=== PATIENT | male | born 1950 | race African-American/Black ===

== ENCOUNTER 2021-02-19 14:44 | Inpatient (IN) | payer OTHER ==
[2021-02-19 16:05] VITALS: BMI 32.5
[2021-02-20] MEDS ORDERED: guaiFENesin 200 MG/10 ML 10 ML UNIT-DOSE CUPS PO PRN (00:22)
[2021-02-20] MEDS ORDERED: NICOTINE POLACRILEX 2 MG GUM BC PRN (00:22)
[2021-02-20] MEDS ORDERED: P-EPHED 60MG/TRIPROLIDI 2.5MG TABLET PO PRN (00:22)
[2021-02-20] MEDS ORDERED: MAGNESIUM HYDROX 2400MG/30ML ORAL SUSPENSION 30 ML CUP PO PRN (00:22)
[2021-02-20] MEDS ORDERED: MAG HYDROX/AL HYDROX/SIMETH 30 ML UNIT-DOSE CUP PO PRN (00:22)
[2021-02-20] MEDS ORDERED: LOPERAMIDE HCL 2 MG CAPSULE PO PRN (00:22)
[2021-02-20] MEDS ORDERED: MAGNESIUM CITRATE 300 ML BOTTLE PO PRN (00:22)
[2021-02-20] MEDS ORDERED: TUBERCULIN PPD 5 TU/0.1ML VIAL ID ONE (02:33)
[2021-02-20 10:59] LABS: ALBUMIN 3.3 g/dl (3.4-5.0)
[2021-02-20 11:04] LABS: BILIRUBIN,TOTAL 0.2 mg/dL (0.2-1); BLOOD UREA NITROGEN 22.4 mg/dL (7-18); CALCIUM 9.3 mg/dL (8.5-10.1); CREATININE 2.2 mg/dL (0.55-1.3); TOT PROT 6.6 g/dl (6.4-8.2)
[2021-02-20 11:09] LABS: HEMATOCRIT 37.7 % (35.4-49); HEMOGLOBIN 12.3 GM/dL (11.7-16.9); MCH 27.1 pg (25.7-33.7); MCHC 32.6 g/dl (32.0-35.9); MEAN CELL VOLUME 83.3 fl (80-96); MEAN PLT VOLUME 10.7 fl (7.5-11.1); PLATELET COUNT 301 10^3/uL (134-434); RBC 4.52 M/mm3 (4.00-5.60); RDW 14.6 % (11.9-15.9); WHITE BLOOD COUNT 16.1 K/mm3 (4.0-10.0)
[2021-02-20] MEDS: NICOTINE 7 MG/24 HOURS TOPICAL PATCH TD SCH (11:27)
[2021-02-20] MEDS: PRENATAL VITAMINS W/ FOLIC ACID TABLET (FP) PO SCH (11:27)
[2021-02-20] MEDS ORDERED: POTASSIUM CHLORIDE TABS 20 MEQ TABLET.ER (FP) PO ONE (15:51)
[2021-02-20 21:14] LABS: EPI CELLS 6 /uL (0-25.1); HYALINE CASTS 0 /uL (0-3.1); URINE APPEARANCE CLEAR; URINE BACTERIA 8 /uL (0-1359); URINE BILIRUBIN NEGATIVE (NEGATIVE); URINE COLOR YELLOW; URINE GLUCOSE (UA) TRACE (NEGATIVE); URINE KETONE NEGATIVE (NEGATIVE); URINE LEUK ESTERASE NEGATIVE (NEGATIVE); URINE NITRITE NEGATIVE (NEGATIVE); URINE PROTEIN 3+ (NEGATIVE); URINE RBC 3 /uL (0-23.9); URINE UROBILINOGEN 0.2 mg/dL (0.2-1.0); URINE WBC 7 /uL (0-25.8)
[2021-02-20] MEDS: MELATONIN 5 MG TABLETS PO SCH (21:42)
[2021-02-20] MEDS: THIAMINE HCL 100 MG TABLET (FP) PO SCH (21:42)
[2021-02-20] MEDS: IBUPROFEN 400 MG TABLET (FP) PO PRN (21:43)
[2021-02-21] MEDS: amLODIPine BESYLATE 5 MG TABLET (FP) PO SCH ×2 (07:26→10:38)
[2021-02-21 09:55] LABS: BLOOD UREA NITROGEN 17.7 mg/dL (7-18); CALCIUM 9.1 mg/dL (8.5-10.1)
[2021-02-21] MEDS: PRENATAL VITAMINS W/ FOLIC ACID TABLET (FP) PO SCH (10:04)
[2021-02-21] MEDS: NICOTINE 7 MG/24 HOURS TOPICAL PATCH TD SCH (10:05)
[2021-02-21] MEDS: POTASSIUM CHLORIDE TABS 20 MEQ TABLET.ER (FP) PO SCH (10:05)
[2021-02-21] MEDS: IBUPROFEN 400 MG TABLET (FP) PO PRN ×2 (10:06→17:00)
[2021-02-21] MEDS: MELATONIN 5 MG TABLETS PO SCH (21:02)
[2021-02-21] MEDS: THIAMINE HCL 100 MG TABLET (FP) PO SCH (21:02)
[2021-02-21] MEDS: ACETAMINOPHEN 325 MG TABLET (FP) PO PRN (21:03)
[2021-02-22] MEDS: ACETAMINOPHEN 325 MG TABLET (FP) PO PRN ×4 (02:01→18:20)
[2021-02-22] MEDS: PRENATAL VITAMINS W/ FOLIC ACID TABLET (FP) PO SCH (09:50)
[2021-02-22] MEDS: amLODIPine BESYLATE 5 MG TABLET (FP) PO SCH (09:50)
[2021-02-22] MEDS: POTASSIUM CHLORIDE TABS 20 MEQ TABLET.ER (FP) PO SCH (09:50)
[2021-02-22] MEDS: NICOTINE 7 MG/24 HOURS TOPICAL PATCH TD SCH (09:53)
[2021-02-22 10:01] LABS: BASO % 0.8 % (0-2.0); HEMATOCRIT 39.2 % (35.4-49); HEMOGLOBIN 12.8 GM/dL (11.7-16.9); LYMPH % 24.9 % (8-40); MCH 27.4 pg (25.7-33.7); MCHC 32.8 g/dl (32.0-35.9); MEAN CELL VOLUME 83.6 fl (80-96); MONO % 8.3 % (3.8-10.2); PLATELET COUNT 311 10^3/uL (134-434); RBC 4.69 M/mm3 (4.00-5.60); RDW 14.5 % (11.9-15.9); WHITE BLOOD COUNT 14.3 K/mm3 (4.0-10.0)
[2021-02-22 10:06] LABS: BLOOD UREA NITROGEN 21.8 mg/dL (7-18)
[2021-02-22 10:09] LABS: CREATININE 2.2 mg/dL (0.55-1.3)
[2021-02-22] MEDS ORDERED: COVID-19 VAC,AD26(JANSSEN)/PF 0.5 ML IM ONE (12:00)
[2021-02-22] MEDS: LIDOCAINE 5% TOPICAL PATCH TP SCH (13:04)
[2021-02-22] MEDS: MELATONIN 5 MG TABLETS PO SCH (21:12)
[2021-02-22] MEDS: LIDOCAINE PATCH REMOVAL MC SCH (21:12)
[2021-02-22] MEDS: THIAMINE HCL 100 MG TABLET (FP) PO SCH (21:12)
[2021-02-23] MEDS: hydrOXYzine PAMOATE 25 MG CAPSULE (FP) PO PRN (04:29)
[2021-02-23] MEDS: ACETAMINOPHEN 325 MG TABLET (FP) PO PRN ×2 (04:29→13:42)
[2021-02-23] MEDS: PRENATAL VITAMINS W/ FOLIC ACID TABLET (FP) PO SCH (09:51)
[2021-02-23] MEDS: NICOTINE 7 MG/24 HOURS TOPICAL PATCH TD SCH (09:52)
[2021-02-23] MEDS: LIDOCAINE 5% TOPICAL PATCH TP SCH (09:52)
[2021-02-23] MEDS: amLODIPine BESYLATE 10 MG TABLET (FP) PO SCH (09:52)
[2021-02-23] MEDS: LISINOPRIL 10 MG TABLET PO SCH (10:33)
[2021-02-23] MEDS: GABAPENTIN 100 MG CAPSULE PO SCH ×2 (13:41→21:16)
[2021-02-23] MEDS: MELATONIN 5 MG TABLETS PO SCH (21:16)
[2021-02-23] MEDS: THIAMINE HCL 100 MG TABLET (FP) PO SCH (21:16)
[2021-02-23] MEDS: LIDOCAINE PATCH REMOVAL MC SCH (21:17)
[2021-02-24] MEDS: GABAPENTIN 100 MG CAPSULE PO SCH ×3 (06:37→21:44)
[2021-02-24] MEDS: ACETAMINOPHEN 325 MG TABLET (FP) PO PRN ×3 (06:37→21:45)
[2021-02-24] MEDS ORDERED: cloNIDine HCL 0.1 MG TABLET PO ONE (06:45)
[2021-02-24] MEDS: NICOTINE 7 MG/24 HOURS TOPICAL PATCH TD SCH (11:06)
[2021-02-24] MEDS: LISINOPRIL 10 MG TABLET PO SCH (11:06)
[2021-02-24] MEDS: amLODIPine BESYLATE 10 MG TABLET (FP) PO SCH (11:06)
[2021-02-24] MEDS: PRENATAL VITAMINS W/ FOLIC ACID TABLET (FP) PO SCH (11:06)
[2021-02-24] MEDS: hydrOXYzine PAMOATE 25 MG CAPSULE (FP) PO PRN (11:07)
[2021-02-24] MEDS: LIDOCAINE 5% TOPICAL PATCH TP SCH (11:08)
[2021-02-24] MEDS: THIAMINE HCL 100 MG TABLET (FP) PO SCH (21:43)
[2021-02-24] MEDS: MELATONIN 5 MG TABLETS PO SCH (21:43)
[2021-02-24] MEDS: LIDOCAINE PATCH REMOVAL MC SCH (21:45)
[2021-02-25] MEDS: GABAPENTIN 100 MG CAPSULE PO SCH ×3 (06:42→21:11)
[2021-02-25] MEDS: ACETAMINOPHEN 325 MG TABLET (FP) PO PRN ×3 (06:42→21:13)
[2021-02-25] MEDS: PRENATAL VITAMINS W/ FOLIC ACID TABLET (FP) PO SCH (09:42)
[2021-02-25] MEDS: hydrOXYzine PAMOATE 25 MG CAPSULE (FP) PO PRN (09:42)
[2021-02-25] MEDS: amLODIPine BESYLATE 10 MG TABLET (FP) PO SCH (09:42)
[2021-02-25] MEDS: LISINOPRIL 10 MG TABLET PO SCH (09:42)
[2021-02-25] MEDS: LIDOCAINE 5% TOPICAL PATCH TP SCH (09:43)
[2021-02-25] MEDS: NICOTINE 7 MG/24 HOURS TOPICAL PATCH TD SCH (09:43)
[2021-02-25 10:53] LABS: BLOOD UREA NITROGEN 25.5 mg/dL (7-18); CALCIUM 8.7 mg/dL (8.5-10.1)
[2021-02-25 10:54] LABS: HEMATOCRIT 41.6 % (35.4-49); HEMOGLOBIN 13.1 GM/dL (11.7-16.9); LYMPH % 30.8 % (8-40); MCH 26.4 pg (25.7-33.7); MCHC 31.6 g/dl (32.0-35.9); MEAN CELL VOLUME 83.8 fl (80-96); MEAN PLT VOLUME 10.3 fl (7.5-11.1); MONO % 10.9 % (3.8-10.2); NEUT % 55.3 % (42.8-82.8); PLATELET COUNT 325 10^3/uL (134-434); RBC 4.97 M/mm3 (4.00-5.60); RDW 14.4 % (11.9-15.9); WHITE BLOOD COUNT 11.6 K/mm3 (4.0-10.0)
[2021-02-25 10:56] LABS: CREATININE 2.4 mg/dL (0.55-1.3)
[2021-02-25] MEDS ORDERED: METHOCARBAMOL 500 MG TABLET PO SCH (14:00)
[2021-02-25] MEDS: BACLOFEN 10 MG TABLET (FP) PO PRN (15:05)
[2021-02-25] MEDS: MELATONIN 5 MG TABLETS PO SCH (21:11)
[2021-02-25] MEDS: THIAMINE HCL 100 MG TABLET (FP) PO SCH (21:11)
[2021-02-25] MEDS: LIDOCAINE PATCH REMOVAL MC SCH (21:14)
[2021-02-26] MEDS: LISINOPRIL 10 MG TABLET PO SCH (07:06)
[2021-02-26] MEDS: amLODIPine BESYLATE 10 MG TABLET (FP) PO SCH (07:06)
[2021-02-26] MEDS: GABAPENTIN 100 MG CAPSULE PO SCH ×3 (07:06→21:38)
[2021-02-26] MEDS: PRENATAL VITAMINS W/ FOLIC ACID TABLET (FP) PO SCH (10:23)
[2021-02-26] MEDS: NICOTINE 7 MG/24 HOURS TOPICAL PATCH TD SCH (10:24)
[2021-02-26] MEDS: LIDOCAINE 5% TOPICAL PATCH TP SCH (10:24)
[2021-02-26] MEDS: BACLOFEN 10 MG TABLET (FP) PO PRN ×3 (10:26→21:38)
[2021-02-26] MEDS: ACETAMINOPHEN 325 MG TABLET (FP) PO PRN ×2 (10:26→21:40)
[2021-02-26] MEDS ORDERED: INSULIN (NOVOLOG) ASPART 100 UNITS/ML 10ML VIAL ONE (17:40)
[2021-02-26] MEDS ORDERED: INSULIN (NOVOLOG) ASPART 100 UNITS/ML 10ML VIAL SQ ONE (18:43)
[2021-02-26] MEDS: THIAMINE HCL 100 MG TABLET (FP) PO SCH (21:38)
[2021-02-26] MEDS: MELATONIN 5 MG TABLETS PO SCH (21:38)
[2021-02-26] MEDS: LIDOCAINE PATCH REMOVAL MC SCH (21:38)
[2021-02-27] MEDS: amLODIPine BESYLATE 10 MG TABLET (FP) PO SCH (06:54)
[2021-02-27] MEDS: GABAPENTIN 100 MG CAPSULE PO SCH ×3 (06:55→21:20)
[2021-02-27] MEDS: LISINOPRIL 10 MG TABLET PO SCH (06:55)
[2021-02-27] MEDS ORDERED: INSULIN SLIDING SCALE (NOVOLOG) 1 VIAL SQ SCH (07:00)
[2021-02-27] MEDS ORDERED: INSULIN (NOVOLOG) ASPART 100 UNITS/ML 10ML VIAL ONE ×2 (07:13→17:20)
[2021-02-27] MEDS: INSULIN SLIDING SCALE (NOVOLOG) 1 VIAL SQ SCH ×2 (07:14→17:21)
[2021-02-27] MEDS: LIDOCAINE 5% TOPICAL PATCH TP SCH (09:42)
[2021-02-27] MEDS: PRENATAL VITAMINS W/ FOLIC ACID TABLET (FP) PO SCH (09:43)
[2021-02-27] MEDS: BACLOFEN 10 MG TABLET (FP) PO PRN ×2 (09:43→15:46)
[2021-02-27] MEDS: NICOTINE 7 MG/24 HOURS TOPICAL PATCH TD SCH (09:43)
[2021-02-27] MEDS: ACETAMINOPHEN 325 MG TABLET (FP) PO PRN ×2 (09:44→21:21)
[2021-02-27] MEDS: MELATONIN 5 MG TABLETS PO SCH (21:19)
[2021-02-27] MEDS: THIAMINE HCL 100 MG TABLET (FP) PO SCH (21:20)
[2021-02-27] MEDS: LIDOCAINE PATCH REMOVAL MC SCH (21:20)
[2021-02-28] MEDS: GABAPENTIN 100 MG CAPSULE PO SCH ×3 (07:05→21:37)
[2021-02-28] MEDS: amLODIPine BESYLATE 10 MG TABLET (FP) PO SCH (07:06)
[2021-02-28] MEDS: LISINOPRIL 10 MG TABLET PO SCH (07:06)
[2021-02-28] MEDS: INSULIN SLIDING SCALE (NOVOLOG) 1 VIAL SQ SCH ×2 (07:09→17:32)
[2021-02-28] MEDS ORDERED: INSULIN (NOVOLOG) ASPART 100 UNITS/ML 10ML VIAL ONE ×2 (07:12→16:32)
[2021-02-28] MEDS: hydrOXYzine PAMOATE 25 MG CAPSULE (FP) PO PRN (09:39)
[2021-02-28] MEDS: BACLOFEN 10 MG TABLET (FP) PO PRN ×2 (09:39→14:27)
[2021-02-28] MEDS: PRENATAL VITAMINS W/ FOLIC ACID TABLET (FP) PO SCH (09:39)
[2021-02-28] MEDS: ACETAMINOPHEN 325 MG TABLET (FP) PO PRN ×3 (09:40→21:38)
[2021-02-28] MEDS: LIDOCAINE 5% TOPICAL PATCH TP SCH (09:41)
[2021-02-28] MEDS: NICOTINE 7 MG/24 HOURS TOPICAL PATCH TD SCH (10:18)
[2021-02-28] MEDS: THIAMINE HCL 100 MG TABLET (FP) PO SCH (21:38)
[2021-02-28] MEDS: MELATONIN 5 MG TABLETS PO SCH (21:38)
[2021-02-28] MEDS: LIDOCAINE PATCH REMOVAL MC SCH (21:39)
[2021-03-01] MEDS: LISINOPRIL 10 MG TABLET PO SCH (06:45)
[2021-03-01] MEDS: amLODIPine BESYLATE 10 MG TABLET (FP) PO SCH (06:45)
[2021-03-01] MEDS: GABAPENTIN 100 MG CAPSULE PO SCH ×3 (06:45→21:12)
[2021-03-01] MEDS: INSULIN SLIDING SCALE (NOVOLOG) 1 VIAL SQ SCH ×2 (06:48→16:54)
[2021-03-01] MEDS ORDERED: INSULIN (NOVOLOG) ASPART 100 UNITS/ML 10ML VIAL ONE ×2 (06:56→16:53)
[2021-03-01] MEDS: PRENATAL VITAMINS W/ FOLIC ACID TABLET (FP) PO SCH (10:05)
[2021-03-01] MEDS: hydrOXYzine PAMOATE 25 MG CAPSULE (FP) PO PRN (10:05)
[2021-03-01] MEDS: ACETAMINOPHEN 325 MG TABLET (FP) PO PRN (10:06)
[2021-03-01] MEDS: LIDOCAINE 5% TOPICAL PATCH TP SCH (10:07)
[2021-03-01] MEDS: NICOTINE 7 MG/24 HOURS TOPICAL PATCH TD SCH (10:07)
[2021-03-01] MEDS: THIAMINE HCL 100 MG TABLET (FP) PO SCH (21:12)
[2021-03-01] MEDS: MELATONIN 5 MG TABLETS PO SCH (21:12)
[2021-03-01] MEDS: LIDOCAINE PATCH REMOVAL MC SCH (21:13)
[2021-03-02] MEDS: BACLOFEN 10 MG TABLET (FP) PO PRN ×3 (07:18→13:34)
[2021-03-02] MEDS: GABAPENTIN 100 MG CAPSULE PO SCH ×3 (07:18→21:28)
[2021-03-02] MEDS: amLODIPine BESYLATE 10 MG TABLET (FP) PO SCH (07:18)
[2021-03-02] MEDS: LISINOPRIL 10 MG TABLET PO SCH (07:18)
[2021-03-02] MEDS ORDERED: INSULIN (NOVOLOG) ASPART 100 UNITS/ML 10ML VIAL ONE ×2 (07:21→16:57)
[2021-03-02] MEDS: INSULIN SLIDING SCALE (NOVOLOG) 1 VIAL SQ SCH ×2 (07:21→16:57)
[2021-03-02] MEDS: PRENATAL VITAMINS W/ FOLIC ACID TABLET (FP) PO SCH (09:43)
[2021-03-02] MEDS: NICOTINE 7 MG/24 HOURS TOPICAL PATCH TD SCH (09:43)
[2021-03-02] MEDS: LIDOCAINE 5% TOPICAL PATCH TP SCH (09:43)
[2021-03-02] MEDS: ACETAMINOPHEN 325 MG TABLET (FP) PO PRN ×2 (13:34→21:28)
[2021-03-02] MEDS: MELATONIN 5 MG TABLETS PO SCH (21:28)
[2021-03-02] MEDS: THIAMINE HCL 100 MG TABLET (FP) PO SCH (21:28)
[2021-03-02] MEDS: LIDOCAINE PATCH REMOVAL MC SCH (21:29)
[2021-03-03] MEDS: GABAPENTIN 100 MG CAPSULE PO SCH ×3 (06:34→21:07)
[2021-03-03] MEDS: amLODIPine BESYLATE 10 MG TABLET (FP) PO SCH (06:34)
[2021-03-03] MEDS: LISINOPRIL 10 MG TABLET PO SCH (06:34)
[2021-03-03] MEDS: INSULIN SLIDING SCALE (NOVOLOG) 1 VIAL SQ SCH ×2 (06:38→16:16)
[2021-03-03] MEDS: PRENATAL VITAMINS W/ FOLIC ACID TABLET (FP) PO SCH (10:34)
[2021-03-03] MEDS: LIDOCAINE 5% TOPICAL PATCH TP SCH (10:34)
[2021-03-03] MEDS: BACLOFEN 10 MG TABLET (FP) PO PRN ×2 (10:35→15:14)
[2021-03-03] MEDS: NICOTINE 7 MG/24 HOURS TOPICAL PATCH TD SCH (10:35)
[2021-03-03] MEDS: ACETAMINOPHEN 325 MG TABLET (FP) PO PRN ×2 (10:36→21:08)
[2021-03-03] MEDS ORDERED: cloNIDine HCL 0.1 MG TABLET PO ONE (14:21)
[2021-03-03] MEDS: HYDROCHLOROTHIAZIDE 12.5 MG CAPSULE (FP) PO SCH (15:14)
[2021-03-03] MEDS ORDERED: INSULIN (NOVOLOG) ASPART 100 UNITS/ML 10ML VIAL ONE (16:15)
[2021-03-03] MEDS: MELATONIN 5 MG TABLETS PO SCH (21:07)
[2021-03-03] MEDS: THIAMINE HCL 100 MG TABLET (FP) PO SCH (21:07)
[2021-03-03] MEDS: METHYL SALICYLATE/MENTHOL OINT 30 GM TUBE TP SCH (21:07)
[2021-03-03] MEDS: LIDOCAINE PATCH REMOVAL MC SCH (21:08)
[2021-03-04] MEDS: LISINOPRIL 10 MG TABLET PO SCH (06:28)
[2021-03-04] MEDS: amLODIPine BESYLATE 10 MG TABLET (FP) PO SCH (06:28)
[2021-03-04] MEDS: GABAPENTIN 100 MG CAPSULE PO SCH ×3 (06:28→21:11)
[2021-03-04] MEDS: INSULIN SLIDING SCALE (NOVOLOG) 1 VIAL SQ SCH ×2 (06:31→17:12)
[2021-03-04] MEDS ORDERED: INSULIN (NOVOLOG) ASPART 100 UNITS/ML 10ML VIAL ONE ×2 (06:31→17:12)
[2021-03-04] MEDS: HYDROCHLOROTHIAZIDE 12.5 MG CAPSULE (FP) PO SCH (09:26)
[2021-03-04] MEDS: PRENATAL VITAMINS W/ FOLIC ACID TABLET (FP) PO SCH (09:26)
[2021-03-04] MEDS: NICOTINE 7 MG/24 HOURS TOPICAL PATCH TD SCH (09:27)
[2021-03-04] MEDS: LIDOCAINE 5% TOPICAL PATCH TP SCH (09:27)
[2021-03-04] MEDS: BACLOFEN 10 MG TABLET (FP) PO PRN (14:26)
[2021-03-04] MEDS: MELATONIN 5 MG TABLETS PO SCH (21:11)
[2021-03-04] MEDS: THIAMINE HCL 100 MG TABLET (FP) PO SCH (21:11)
[2021-03-04] MEDS: METHYL SALICYLATE/MENTHOL OINT 30 GM TUBE TP SCH (21:12)
[2021-03-04] MEDS: LIDOCAINE PATCH REMOVAL MC SCH (21:12)
[2021-03-05] MEDS: amLODIPine BESYLATE 10 MG TABLET (FP) PO SCH (06:23)
[2021-03-05] MEDS: LISINOPRIL 10 MG TABLET PO SCH (06:23)
[2021-03-05] MEDS: GABAPENTIN 100 MG CAPSULE PO SCH ×3 (06:24→21:31)
[2021-03-05] MEDS: INSULIN SLIDING SCALE (NOVOLOG) 1 VIAL SQ SCH ×2 (06:26→16:37)
[2021-03-05] MEDS ORDERED: INSULIN (NOVOLOG) ASPART 100 UNITS/ML 10ML VIAL ONE ×2 (07:03→16:36)
[2021-03-05] MEDS: HYDROCHLOROTHIAZIDE 12.5 MG CAPSULE (FP) PO SCH (09:51)
[2021-03-05] MEDS: LIDOCAINE 5% TOPICAL PATCH TP SCH (09:51)
[2021-03-05] MEDS: PRENATAL VITAMINS W/ FOLIC ACID TABLET (FP) PO SCH (09:51)
[2021-03-05] MEDS: NICOTINE 7 MG/24 HOURS TOPICAL PATCH TD SCH (10:16)
[2021-03-05] MEDS: BACLOFEN 10 MG TABLET (FP) PO PRN (13:40)
[2021-03-05] MEDS: LIDOCAINE PATCH REMOVAL MC SCH (21:31)
[2021-03-05] MEDS: MELATONIN 5 MG TABLETS PO SCH (21:31)
[2021-03-05] MEDS: METHYL SALICYLATE/MENTHOL OINT 30 GM TUBE TP SCH (21:31)
[2021-03-05] MEDS: THIAMINE HCL 100 MG TABLET (FP) PO SCH (21:31)
[2021-03-06] MEDS: amLODIPine BESYLATE 10 MG TABLET (FP) PO SCH (07:18)
[2021-03-06] MEDS: BACLOFEN 10 MG TABLET (FP) PO PRN (07:18)
[2021-03-06] MEDS: GABAPENTIN 100 MG CAPSULE PO SCH ×3 (07:18→21:14)
[2021-03-06] MEDS: LISINOPRIL 10 MG TABLET PO SCH (07:18)
[2021-03-06] MEDS ORDERED: INSULIN (NOVOLOG) ASPART 100 UNITS/ML 10ML VIAL ONE ×2 (07:22→17:00)
[2021-03-06] MEDS: INSULIN SLIDING SCALE (NOVOLOG) 1 VIAL SQ SCH ×2 (07:22→17:00)
[2021-03-06] MEDS: HYDROCHLOROTHIAZIDE 12.5 MG CAPSULE (FP) PO SCH (09:38)
[2021-03-06] MEDS: LIDOCAINE 5% TOPICAL PATCH TP SCH (09:38)
[2021-03-06] MEDS: PRENATAL VITAMINS W/ FOLIC ACID TABLET (FP) PO SCH (09:38)
[2021-03-06] MEDS: hydrOXYzine PAMOATE 25 MG CAPSULE (FP) PO PRN (09:38)
[2021-03-06] MEDS: NICOTINE 7 MG/24 HOURS TOPICAL PATCH TD SCH (09:39)
[2021-03-06] MEDS: METHYL SALICYLATE/MENTHOL OINT 30 GM TUBE TP SCH (21:13)
[2021-03-06] MEDS: LIDOCAINE PATCH REMOVAL MC SCH (21:13)
[2021-03-06] MEDS: THIAMINE HCL 100 MG TABLET (FP) PO SCH (21:14)
[2021-03-06] MEDS: MELATONIN 5 MG TABLETS PO SCH (21:15)
[2021-03-07] MEDS: GABAPENTIN 100 MG CAPSULE PO SCH ×3 (06:28→21:07)
[2021-03-07] MEDS: amLODIPine BESYLATE 10 MG TABLET (FP) PO SCH (06:28)
[2021-03-07] MEDS: LISINOPRIL 10 MG TABLET PO SCH (06:28)
[2021-03-07] MEDS: INSULIN SLIDING SCALE (NOVOLOG) 1 VIAL SQ SCH ×2 (06:31→17:04)
[2021-03-07] MEDS: HYDROCHLOROTHIAZIDE 12.5 MG CAPSULE (FP) PO SCH (09:43)
[2021-03-07] MEDS: PRENATAL VITAMINS W/ FOLIC ACID TABLET (FP) PO SCH (09:43)
[2021-03-07] MEDS: LIDOCAINE 5% TOPICAL PATCH TP SCH (09:44)
[2021-03-07] MEDS: NICOTINE 7 MG/24 HOURS TOPICAL PATCH TD SCH (09:46)
[2021-03-07] MEDS ORDERED: INSULIN (NOVOLOG) ASPART 100 UNITS/ML 10ML VIAL ONE (17:05)
[2021-03-07] MEDS: LIDOCAINE PATCH REMOVAL MC SCH (21:07)
[2021-03-07] MEDS: THIAMINE HCL 100 MG TABLET (FP) PO SCH (21:07)
[2021-03-07] MEDS: MELATONIN 5 MG TABLETS PO SCH (21:07)
[2021-03-07] MEDS: METHYL SALICYLATE/MENTHOL OINT 30 GM TUBE TP SCH (21:08)
[2021-03-08] MEDS: hydrOXYzine PAMOATE 25 MG CAPSULE (FP) PO PRN (02:13)
[2021-03-08] MEDS: GABAPENTIN 100 MG CAPSULE PO SCH ×3 (06:16→21:44)
[2021-03-08] MEDS: LISINOPRIL 10 MG TABLET PO SCH (06:16)
[2021-03-08] MEDS: amLODIPine BESYLATE 10 MG TABLET (FP) PO SCH (06:16)
[2021-03-08] MEDS: INSULIN SLIDING SCALE (NOVOLOG) 1 VIAL SQ SCH ×2 (06:18→17:06)
[2021-03-08] MEDS ORDERED: INSULIN (NOVOLOG) ASPART 100 UNITS/ML 10ML VIAL ONE ×2 (06:45→17:05)
[2021-03-08] MEDS: LIDOCAINE 5% TOPICAL PATCH TP SCH (09:38)
[2021-03-08] MEDS: HYDROCHLOROTHIAZIDE 12.5 MG CAPSULE (FP) PO SCH (09:39)
[2021-03-08] MEDS: NICOTINE 7 MG/24 HOURS TOPICAL PATCH TD SCH (09:39)
[2021-03-08] MEDS: BACLOFEN 10 MG TABLET (FP) PO PRN ×2 (09:39→15:00)
[2021-03-08] MEDS: PRENATAL VITAMINS W/ FOLIC ACID TABLET (FP) PO SCH (09:39)
[2021-03-08] MEDS: METHYL SALICYLATE/MENTHOL OINT 30 GM TUBE TP SCH (21:44)
[2021-03-08] MEDS: MELATONIN 5 MG TABLETS PO SCH (21:44)
[2021-03-08] MEDS: THIAMINE HCL 100 MG TABLET (FP) PO SCH (21:44)
[2021-03-08] MEDS: LIDOCAINE PATCH REMOVAL MC SCH (21:44)
[2021-03-09] MEDS: INSULIN SLIDING SCALE (NOVOLOG) 1 VIAL SQ SCH ×2 (06:29→17:11)
[2021-03-09] MEDS: GABAPENTIN 100 MG CAPSULE PO SCH ×3 (06:29→21:09)
[2021-03-09] MEDS: LISINOPRIL 10 MG TABLET PO SCH (06:29)
[2021-03-09] MEDS: amLODIPine BESYLATE 10 MG TABLET (FP) PO SCH (06:29)
[2021-03-09] MEDS ORDERED: INSULIN (NOVOLOG) ASPART 100 UNITS/ML 10ML VIAL ONE ×2 (06:33→17:16)
[2021-03-09] MEDS: BACLOFEN 10 MG TABLET (FP) PO PRN (10:00)
[2021-03-09] MEDS: HYDROCHLOROTHIAZIDE 12.5 MG CAPSULE (FP) PO SCH (10:00)
[2021-03-09] MEDS: NICOTINE 7 MG/24 HOURS TOPICAL PATCH TD SCH (10:00)
[2021-03-09] MEDS: PRENATAL VITAMINS W/ FOLIC ACID TABLET (FP) PO SCH (10:00)
[2021-03-09] MEDS: LIDOCAINE 5% TOPICAL PATCH TP SCH (10:01)
[2021-03-09] MEDS: MELATONIN 5 MG TABLETS PO SCH (21:09)
[2021-03-09] MEDS: THIAMINE HCL 100 MG TABLET (FP) PO SCH (21:09)
[2021-03-09] MEDS: ACETAMINOPHEN 325 MG TABLET (FP) PO PRN (21:10)
[2021-03-09] MEDS: LIDOCAINE PATCH REMOVAL MC SCH (21:11)
[2021-03-09] MEDS: METHYL SALICYLATE/MENTHOL OINT 30 GM TUBE TP SCH (21:11)
[2021-03-10] MEDS: LISINOPRIL 10 MG TABLET PO SCH (06:50)
[2021-03-10] MEDS: GABAPENTIN 100 MG CAPSULE PO SCH ×3 (06:50→21:37)
[2021-03-10] MEDS: amLODIPine BESYLATE 10 MG TABLET (FP) PO SCH (06:50)
[2021-03-10] MEDS: INSULIN SLIDING SCALE (NOVOLOG) 1 VIAL SQ SCH ×2 (06:52→16:58)
[2021-03-10] MEDS ORDERED: INSULIN (NOVOLOG) ASPART 100 UNITS/ML 10ML VIAL ONE ×2 (07:16→16:59)
[2021-03-10] MEDS: HYDROCHLOROTHIAZIDE 12.5 MG CAPSULE (FP) PO SCH (10:52)
[2021-03-10] MEDS: LIDOCAINE 5% TOPICAL PATCH TP SCH (10:52)
[2021-03-10] MEDS: PRENATAL VITAMINS W/ FOLIC ACID TABLET (FP) PO SCH (10:53)
[2021-03-10] MEDS: BACLOFEN 10 MG TABLET (FP) PO PRN ×2 (10:53→14:19)
[2021-03-10] MEDS: NICOTINE 7 MG/24 HOURS TOPICAL PATCH TD SCH (10:54)
[2021-03-10] MEDS: THIAMINE HCL 100 MG TABLET (FP) PO SCH (21:37)
[2021-03-10] MEDS: METHYL SALICYLATE/MENTHOL OINT 30 GM TUBE TP SCH (21:38)
[2021-03-10] MEDS: LIDOCAINE PATCH REMOVAL MC SCH (21:38)
[2021-03-10] MEDS: MELATONIN 5 MG TABLETS PO SCH (21:38)
[2021-03-11] MEDS: ACETAMINOPHEN 325 MG TABLET (FP) PO PRN (00:02)
[2021-03-11] MEDS: GABAPENTIN 100 MG CAPSULE PO SCH ×3 (06:35→21:08)
[2021-03-11] MEDS: LISINOPRIL 10 MG TABLET PO SCH (06:35)
[2021-03-11] MEDS: amLODIPine BESYLATE 10 MG TABLET (FP) PO SCH (06:35)
[2021-03-11] MEDS: INSULIN SLIDING SCALE (NOVOLOG) 1 VIAL SQ SCH ×2 (06:36→16:51)
[2021-03-11] MEDS ORDERED: INSULIN (NOVOLOG) ASPART 100 UNITS/ML 10ML VIAL ONE ×2 (06:52→16:52)
[2021-03-11] MEDS: PRENATAL VITAMINS W/ FOLIC ACID TABLET (FP) PO SCH (10:33)
[2021-03-11] MEDS: NICOTINE 7 MG/24 HOURS TOPICAL PATCH TD SCH (10:33)
[2021-03-11] MEDS: LIDOCAINE 5% TOPICAL PATCH TP SCH (10:34)
[2021-03-11] MEDS: HYDROCHLOROTHIAZIDE 12.5 MG CAPSULE (FP) PO SCH (10:35)
[2021-03-11] MEDS: MELATONIN 5 MG TABLETS PO SCH (21:08)
[2021-03-11] MEDS: THIAMINE HCL 100 MG TABLET (FP) PO SCH (21:08)
[2021-03-11] MEDS: LIDOCAINE PATCH REMOVAL MC SCH (21:09)
[2021-03-11] MEDS: METHYL SALICYLATE/MENTHOL OINT 30 GM TUBE TP SCH (21:09)
[2021-03-12] MEDS: LISINOPRIL 10 MG TABLET PO SCH (06:38)
[2021-03-12] MEDS: GABAPENTIN 100 MG CAPSULE PO SCH ×3 (06:38→21:48)
[2021-03-12] MEDS: amLODIPine BESYLATE 10 MG TABLET (FP) PO SCH (06:38)
[2021-03-12] MEDS: INSULIN SLIDING SCALE (NOVOLOG) 1 VIAL SQ SCH ×2 (06:38→17:08)
[2021-03-12] MEDS ORDERED: INSULIN (NOVOLOG) ASPART 100 UNITS/ML 10ML VIAL ONE ×2 (06:50→16:58)
[2021-03-12] MEDS: PRENATAL VITAMINS W/ FOLIC ACID TABLET (FP) PO SCH (09:47)
[2021-03-12] MEDS: LIDOCAINE 5% TOPICAL PATCH TP SCH (09:48)
[2021-03-12] MEDS: HYDROCHLOROTHIAZIDE 12.5 MG CAPSULE (FP) PO SCH (09:48)
[2021-03-12] MEDS: NICOTINE 7 MG/24 HOURS TOPICAL PATCH TD SCH (09:48)
[2021-03-12] MEDS: BACLOFEN 10 MG TABLET (FP) PO PRN ×2 (09:48→15:14)
[2021-03-12] MEDS: THIAMINE HCL 100 MG TABLET (FP) PO SCH (21:48)
[2021-03-12] MEDS: MELATONIN 5 MG TABLETS PO SCH (21:48)
[2021-03-12] MEDS: METHYL SALICYLATE/MENTHOL OINT 30 GM TUBE TP SCH (21:49)
[2021-03-12] MEDS: LIDOCAINE PATCH REMOVAL MC SCH (21:51)
[2021-03-12] MEDS: ACETAMINOPHEN 325 MG TABLET (FP) PO PRN (23:40)
[2021-03-13] MEDS: GABAPENTIN 100 MG CAPSULE PO SCH ×3 (06:33→21:42)
[2021-03-13] MEDS: amLODIPine BESYLATE 10 MG TABLET (FP) PO SCH (06:33)
[2021-03-13] MEDS: LISINOPRIL 10 MG TABLET PO SCH (06:33)
[2021-03-13] MEDS: INSULIN SLIDING SCALE (NOVOLOG) 1 VIAL SQ SCH ×2 (06:38→17:16)
[2021-03-13] MEDS ORDERED: INSULIN (NOVOLOG) ASPART 100 UNITS/ML 10ML VIAL ONE ×2 (06:39→17:13)
[2021-03-13] MEDS: LIDOCAINE 5% TOPICAL PATCH TP SCH (13:07)
[2021-03-13] MEDS: BACLOFEN 10 MG TABLET (FP) PO PRN ×2 (13:07→14:20)
[2021-03-13] MEDS: NICOTINE 7 MG/24 HOURS TOPICAL PATCH TD SCH (13:07)
[2021-03-13] MEDS: PRENATAL VITAMINS W/ FOLIC ACID TABLET (FP) PO SCH (13:07)
[2021-03-13] MEDS: HYDROCHLOROTHIAZIDE 12.5 MG CAPSULE (FP) PO SCH (13:08)
[2021-03-13] MEDS: THIAMINE HCL 100 MG TABLET (FP) PO SCH (21:41)
[2021-03-13] MEDS: MELATONIN 5 MG TABLETS PO SCH (21:42)
[2021-03-13] MEDS: METHYL SALICYLATE/MENTHOL OINT 30 GM TUBE TP SCH (21:42)
[2021-03-13] MEDS: ACETAMINOPHEN 325 MG TABLET (FP) PO PRN (21:43)
[2021-03-13] MEDS: LIDOCAINE PATCH REMOVAL MC SCH (21:44)
[2021-03-14] MEDS ORDERED: INSULIN (NOVOLOG) ASPART 100 UNITS/ML 10ML VIAL ONE ×2 (03:11→16:49)
[2021-03-14] MEDS: LISINOPRIL 10 MG TABLET PO SCH (05:57)
[2021-03-14] MEDS: GABAPENTIN 100 MG CAPSULE PO SCH ×3 (05:57→21:26)
[2021-03-14] MEDS: amLODIPine BESYLATE 10 MG TABLET (FP) PO SCH (05:57)
[2021-03-14] MEDS: INSULIN SLIDING SCALE (NOVOLOG) 1 VIAL SQ SCH ×2 (06:00→16:50)
[2021-03-14] MEDS: NICOTINE 7 MG/24 HOURS TOPICAL PATCH TD SCH (09:26)
[2021-03-14] MEDS: PRENATAL VITAMINS W/ FOLIC ACID TABLET (FP) PO SCH (09:26)
[2021-03-14] MEDS: LIDOCAINE 5% TOPICAL PATCH TP SCH (09:26)
[2021-03-14] MEDS: HYDROCHLOROTHIAZIDE 12.5 MG CAPSULE (FP) PO SCH (09:26)
[2021-03-14] MEDS: BACLOFEN 10 MG TABLET (FP) PO PRN (14:09)
[2021-03-14] MEDS: METHYL SALICYLATE/MENTHOL OINT 30 GM TUBE TP SCH (21:26)
[2021-03-14] MEDS: MELATONIN 5 MG TABLETS PO SCH (21:26)
[2021-03-14] MEDS: THIAMINE HCL 100 MG TABLET (FP) PO SCH (21:26)
[2021-03-14] MEDS: LIDOCAINE PATCH REMOVAL MC SCH (21:27)
[2021-03-15] MEDS: LISINOPRIL 10 MG TABLET PO SCH (06:40)
[2021-03-15] MEDS: amLODIPine BESYLATE 10 MG TABLET (FP) PO SCH (06:40)
[2021-03-15] MEDS: GABAPENTIN 100 MG CAPSULE PO SCH ×3 (06:40→21:20)
[2021-03-15] MEDS: INSULIN SLIDING SCALE (NOVOLOG) 1 VIAL SQ SCH ×2 (06:42→16:52)
[2021-03-15] MEDS ORDERED: INSULIN (NOVOLOG) ASPART 100 UNITS/ML 10ML VIAL ONE ×2 (06:56→16:55)
[2021-03-15] MEDS: PRENATAL VITAMINS W/ FOLIC ACID TABLET (FP) PO SCH (10:00)
[2021-03-15] MEDS: HYDROCHLOROTHIAZIDE 12.5 MG CAPSULE (FP) PO SCH (10:01)
[2021-03-15] MEDS: NICOTINE 7 MG/24 HOURS TOPICAL PATCH TD SCH (10:01)
[2021-03-15] MEDS: LIDOCAINE 5% TOPICAL PATCH TP SCH (10:02)
[2021-03-15] MEDS: ACETAMINOPHEN 325 MG TABLET (FP) PO PRN (11:21)
[2021-03-15] MEDS: THIAMINE HCL 100 MG TABLET (FP) PO SCH (21:20)
[2021-03-15] MEDS: LIDOCAINE PATCH REMOVAL MC SCH (21:20)
[2021-03-15] MEDS: MELATONIN 5 MG TABLETS PO SCH (21:20)
[2021-03-15] MEDS: METHYL SALICYLATE/MENTHOL OINT 30 GM TUBE TP SCH (21:21)
[2021-03-16] MEDS: LISINOPRIL 10 MG TABLET PO SCH ×2 (06:21→21:37)
[2021-03-16] MEDS: GABAPENTIN 100 MG CAPSULE PO SCH ×3 (06:21→21:37)
[2021-03-16] MEDS: amLODIPine BESYLATE 10 MG TABLET (FP) PO SCH (06:21)
[2021-03-16] MEDS: INSULIN SLIDING SCALE (NOVOLOG) 1 VIAL SQ SCH ×2 (06:23→17:18)
[2021-03-16] MEDS ORDERED: INSULIN (NOVOLOG) ASPART 100 UNITS/ML 10ML VIAL ONE ×2 (06:54→17:19)
[2021-03-16] MEDS: LIDOCAINE 5% TOPICAL PATCH TP SCH (10:16)
[2021-03-16] MEDS: PRENATAL VITAMINS W/ FOLIC ACID TABLET (FP) PO SCH (10:16)
[2021-03-16] MEDS: NICOTINE 7 MG/24 HOURS TOPICAL PATCH TD SCH (10:16)
[2021-03-16] MEDS: BACLOFEN 10 MG TABLET (FP) PO PRN ×2 (10:16→14:49)
[2021-03-16] MEDS: HYDROCHLOROTHIAZIDE 12.5 MG CAPSULE (FP) PO SCH (10:18)
[2021-03-16] MEDS ORDERED: LISINOPRIL 10 MG TABLET PO ONE (10:54)
[2021-03-16] MEDS: MELATONIN 5 MG TABLETS PO SCH (21:37)
[2021-03-16] MEDS: METHYL SALICYLATE/MENTHOL OINT 30 GM TUBE TP SCH (21:38)
[2021-03-16] MEDS: THIAMINE HCL 100 MG TABLET (FP) PO SCH (21:38)
[2021-03-16] MEDS: LIDOCAINE PATCH REMOVAL MC SCH (21:38)
[2021-03-17] MEDS: GABAPENTIN 100 MG CAPSULE PO SCH ×3 (06:15→21:05)
[2021-03-17] MEDS: amLODIPine BESYLATE 10 MG TABLET (FP) PO SCH (06:15)
[2021-03-17] MEDS: sitaGLIPtin PHOSPHATE 50 MG TABLET PO SCH (06:16)
[2021-03-17] MEDS: INSULIN SLIDING SCALE (NOVOLOG) 1 VIAL SQ SCH ×2 (06:17→16:48)
[2021-03-17] MEDS ORDERED: INSULIN (NOVOLOG) ASPART 100 UNITS/ML 10ML VIAL ONE ×2 (07:11→16:47)
[2021-03-17] MEDS: ACETAMINOPHEN 325 MG TABLET (FP) PO PRN (09:03)
[2021-03-17] MEDS: BACLOFEN 10 MG TABLET (FP) PO PRN ×2 (09:50→13:32)
[2021-03-17] MEDS: HYDROCHLOROTHIAZIDE 25 MG TABLET (FP) PO SCH (09:50)
[2021-03-17] MEDS: LISINOPRIL 10 MG TABLET PO SCH ×2 (09:50→21:05)
[2021-03-17] MEDS: PRENATAL VITAMINS W/ FOLIC ACID TABLET (FP) PO SCH (09:50)
[2021-03-17] MEDS: NICOTINE 7 MG/24 HOURS TOPICAL PATCH TD SCH (09:51)
[2021-03-17] MEDS: LIDOCAINE 5% TOPICAL PATCH TP SCH (09:51)
[2021-03-17] MEDS: MELATONIN 5 MG TABLETS PO SCH (21:06)
[2021-03-17] MEDS: THIAMINE HCL 100 MG TABLET (FP) PO SCH (21:06)
[2021-03-17] MEDS: METHYL SALICYLATE/MENTHOL OINT 30 GM TUBE TP SCH (21:07)
[2021-03-17] MEDS: LIDOCAINE PATCH REMOVAL MC SCH (21:07)
[2021-03-18] MEDS: amLODIPine BESYLATE 10 MG TABLET (FP) PO SCH (06:43)
[2021-03-18] MEDS: GABAPENTIN 100 MG CAPSULE PO SCH ×3 (06:43→21:40)
[2021-03-18] MEDS: sitaGLIPtin PHOSPHATE 50 MG TABLET PO SCH (06:44)
[2021-03-18] MEDS: INSULIN SLIDING SCALE (NOVOLOG) 1 VIAL SQ SCH ×2 (06:45→17:02)
[2021-03-18] MEDS ORDERED: INSULIN (NOVOLOG) ASPART 100 UNITS/ML 10ML VIAL ONE ×2 (06:49→17:00)
[2021-03-18] MEDS: PRENATAL VITAMINS W/ FOLIC ACID TABLET (FP) PO SCH (09:49)
[2021-03-18] MEDS: ACETAMINOPHEN 325 MG TABLET (FP) PO PRN (09:49)
[2021-03-18] MEDS: BACLOFEN 10 MG TABLET (FP) PO PRN ×2 (09:50→13:59)
[2021-03-18] MEDS: NICOTINE 7 MG/24 HOURS TOPICAL PATCH TD SCH (09:50)
[2021-03-18] MEDS: LIDOCAINE 5% TOPICAL PATCH TP SCH (09:50)
[2021-03-18] MEDS: LISINOPRIL 10 MG TABLET PO SCH ×2 (09:50→21:40)
[2021-03-18] MEDS: HYDROCHLOROTHIAZIDE 25 MG TABLET (FP) PO SCH (09:50)
[2021-03-18] MEDS: THIAMINE HCL 100 MG TABLET (FP) PO SCH (21:40)
[2021-03-18] MEDS: MELATONIN 5 MG TABLETS PO SCH (21:40)
[2021-03-18] MEDS: LIDOCAINE PATCH REMOVAL MC SCH (21:41)
[2021-03-18] MEDS: METHYL SALICYLATE/MENTHOL OINT 30 GM TUBE TP SCH (21:41)
[2021-03-19] MEDS ORDERED: INSULIN (NOVOLOG) ASPART 100 UNITS/ML 10ML VIAL ONE (03:01)
[2021-03-19] MEDS: amLODIPine BESYLATE 10 MG TABLET (FP) PO SCH (06:38)
[2021-03-19] MEDS: GABAPENTIN 100 MG CAPSULE PO SCH (06:38)
[2021-03-19] MEDS: sitaGLIPtin PHOSPHATE 50 MG TABLET PO SCH (06:38)
[2021-03-19] MEDS: INSULIN SLIDING SCALE (NOVOLOG) 1 VIAL SQ SCH (06:40)
[2021-03-19 07:01] VITALS: BP 181/86; PULSE 89; TEMP 97.7
[2021-03-19] MEDS: HYDROCHLOROTHIAZIDE 25 MG TABLET (FP) PO SCH (09:52)
[2021-03-19] MEDS: LISINOPRIL 10 MG TABLET PO SCH (09:52)
[2021-03-19] MEDS: PRENATAL VITAMINS W/ FOLIC ACID TABLET (FP) PO SCH (09:52)
[2021-03-19] MEDS: LIDOCAINE 5% TOPICAL PATCH TP SCH (09:53)
[2021-03-19] MEDS: NICOTINE 7 MG/24 HOURS TOPICAL PATCH TD SCH (09:53)
== END 2021-03-19 10:07 | disposition home or self-care (01) | DRG 895 ==
LOC: YASAS 14:44 → Y3W 02-20 01:53
PROVIDERS: ADMIT Allergy & Immunology; ATTEND Allergy & Immunology
PROC: HZ42ZZZ Group Counseling for Substance Abuse Treatment, Cognitive-Behavioral (ICD-10-PCS; principal; 2021-02-20)
DX: F10.20 Alcohol dependence, uncomplicated (principal); F14.20 Cocaine dependence, uncomplicated; F11.10 Opioid abuse, uncomplicated; D72.829 Elevated white blood cell count, unspecified; I25.10 Atherosclerotic heart disease of native coronary artery without angina pectoris; I13.10 Hypertensive heart and chronic kidney disease without heart failure, with stage 1 through stage 4 chronic kidney disease, or unspecified chronic kidney disease; N18.9 Chronic kidney disease, unspecified; Z95.5 Presence of coronary angioplasty implant and graft; E87.6 Hypokalemia; E78.5 Hyperlipidemia, unspecified; E11.9 Type 2 diabetes mellitus without complications; Z79.4 Long term (current) use of insulin; L30.9 Dermatitis, unspecified; M17.11 Unilateral primary osteoarthritis, right knee; M19.071 Primary osteoarthritis, right ankle and foot; M25.571 Pain in right ankle and joints of right foot; Z87.81 Personal history of (healed) traumatic fracture; Z90.79 Acquired absence of other genital organ(s); S82.891D Other fracture of right lower leg, subsequent encounter for closed fracture with routine healing; W19.XXXD Unspecified fall, subsequent encounter
CPT/HCPCS: 0031A; 36415; 73610-TC-RT-FY; 80048; 80053; 81003; 82962; 85025; 85027; 86593; 86780; 91303; C9803; J0475; J0735; U0003; U0005

== ENCOUNTER 2021-06-30 12:20 | Inpatient (IN) | payer OTHER ==
[2021-06-30] MEDS ORDERED: MAGNESIUM CITRATE 300 ML BOTTLE PO PRN (14:00)
[2021-06-30] MEDS ORDERED: P-EPHED 60MG/TRIPROLIDI 2.5MG TABLET PO PRN (14:00)
[2021-06-30] MEDS ORDERED: LOPERAMIDE HCL 2 MG CAPSULE PO PRN (14:00)
[2021-06-30] MEDS ORDERED: MAG HYDROX/AL HYDROX/SIMETH 30 ML UNIT-DOSE CUP PO PRN (14:00)
[2021-06-30] MEDS ORDERED: guaiFENesin 200 MG/10 ML 10 ML UNIT-DOSE CUPS PO PRN (14:00)
[2021-06-30] MEDS ORDERED: NICOTINE 10 MG CARTRIDGE (INHALER) IH PRN (14:00)
[2021-06-30] MEDS ORDERED: MAGNESIUM HYDROX 2400MG/30ML ORAL SUSPENSION 30 ML CUP PO PRN (14:00)
[2021-06-30 14:23] VITALS: BMI 32.9
[2021-06-30 17:57] LABS: HEMATOCRIT 43.3 % (35.4-49); MCH 26.6 pg (25.7-33.7); MCHC 32.3 g/dl (32.0-35.9); MEAN CELL VOLUME 82.4 fl (80-96); MEAN PLT VOLUME 11.4 fl (7.5-11.1); PLATELET COUNT 327 10^3/uL (134-434); RBC 5.25 M/mm3 (4.00-5.60); RDW 14.1 % (11.9-15.9); WHITE BLOOD COUNT 15.3 K/mm3 (4.0-10.0)
[2021-06-30 18:03] LABS: BLOOD UREA NITROGEN 42.4 mg/dL (7-18); CALCIUM 9.3 mg/dL (8.5-10.1)
[2021-06-30 18:04] LABS: ALBUMIN 3.4 g/dl (3.4-5.0)
[2021-06-30 18:06] LABS: CREATININE 2.9 mg/dL (0.55-1.3)
[2021-06-30 18:08] LABS: BILIRUBIN,TOTAL 0.4 mg/dL (0.2-1); TOT PROT 7.7 g/dl (6.4-8.2)
[2021-06-30 18:56] LABS: SYPHILIS W/ RPR CONF REACTIVE (NONREACTIVE)
[2021-06-30] MEDS: THIAMINE HCL 100 MG TABLET (FP) PO SCH (21:52)
[2021-06-30] MEDS: hydrOXYzine PAMOATE 25 MG CAPSULE (FP) PO PRN (21:53)
[2021-06-30] MEDS: ATORVASTATIN CA 40 MG TABLET (FP) PO SCH (21:53)
[2021-06-30] MEDS: IBUPROFEN 400 MG TABLET (FP) PO PRN (21:53)
[2021-06-30] MEDS: MELATONIN 5 MG TABLETS PO SCH (21:57)
[2021-07-01] MEDS: sitaGLIPtin PHOSPHATE 50 MG TABLET PO SCH (08:00)
[2021-07-01] MEDS: TAMSULOSIN HCL 0.4 MG CAP PO SCH (11:44)
[2021-07-01] MEDS: NICOTINE 7 MG/24 HOURS TOPICAL PATCH TD SCH (11:45)
[2021-07-01] MEDS: PRENATAL VITAMINS W/ FOLIC ACID TABLET (FP) PO SCH (11:45)
[2021-07-01] MEDS ORDERED: PT OWN MED DRAWER 7, Y5N ONE (17:17)
[2021-07-01] MEDS ORDERED: INSULIN (NOVOLOG) ASPART 100 UNITS/ML 10ML VIAL SQ ONE (17:57)
[2021-07-01] MEDS: THIAMINE HCL 100 MG TABLET (FP) PO SCH (21:31)
[2021-07-01] MEDS: ATORVASTATIN CA 40 MG TABLET (FP) PO SCH (21:32)
[2021-07-01] MEDS: MELATONIN 5 MG TABLETS PO SCH (21:32)
[2021-07-01] MEDS: INSULIN SLIDING SCALE (NOVOLOG) 1 VIAL SQ SCH (21:33)
[2021-07-01] MEDS ORDERED: INSULIN (NOVOLOG) ASPART 100 UNITS/ML 10ML VIAL ONE (21:35)
[2021-07-01] MEDS ORDERED: INSULIN SLIDING SCALE (NOVOLOG) 1 VIAL SQ SCH (22:00)
[2021-07-02] MEDS: hydrOXYzine PAMOATE 25 MG CAPSULE (FP) PO PRN (02:31)
[2021-07-02] MEDS: sitaGLIPtin PHOSPHATE 50 MG TABLET PO SCH (06:43)
[2021-07-02] MEDS ORDERED: INSULIN (NOVOLOG) ASPART 100 UNITS/ML 10ML VIAL ONE ×3 (08:11→21:01)
[2021-07-02] MEDS: INSULIN SLIDING SCALE (NOVOLOG) 1 VIAL SQ SCH ×4 (08:12→21:04)
[2021-07-02] MEDS ORDERED: PT OWN MED DRAWER 7, Y5N ONE (09:10)
[2021-07-02] MEDS: TAMSULOSIN HCL 0.4 MG CAP PO SCH (09:29)
[2021-07-02] MEDS: PRENATAL VITAMINS W/ FOLIC ACID TABLET (FP) PO SCH (09:29)
[2021-07-02] MEDS: NICOTINE 7 MG/24 HOURS TOPICAL PATCH TD SCH (09:29)
[2021-07-02] MEDS ORDERED: FLU VACC QS2021-22(6MOS UP)/PF 60 MCG/0.5 ML SYRINGE IM ONE (12:00)
[2021-07-02] MEDS ORDERED: amLODIPine BESYLATE 10 MG TABLET (FP) PO ONE (15:25)
[2021-07-02] MEDS: THIAMINE HCL 100 MG TABLET (FP) PO SCH (21:03)
[2021-07-02] MEDS: LISINOPRIL 10 MG TABLET PO SCH (21:03)
[2021-07-02] MEDS: ATORVASTATIN CA 40 MG TABLET (FP) PO SCH (21:03)
[2021-07-02] MEDS: MELATONIN 5 MG TABLETS PO SCH (21:04)
[2021-07-03] MEDS: hydrOXYzine PAMOATE 25 MG CAPSULE (FP) PO PRN (01:41)
[2021-07-03] MEDS: sitaGLIPtin PHOSPHATE 50 MG TABLET PO SCH (07:24)
[2021-07-03] MEDS ORDERED: INSULIN (NOVOLOG) ASPART 100 UNITS/ML 10ML VIAL ONE ×2 (07:27→12:17)
[2021-07-03] MEDS: INSULIN SLIDING SCALE (NOVOLOG) 1 VIAL SQ SCH ×4 (08:41→21:25)
[2021-07-03] MEDS: TAMSULOSIN HCL 0.4 MG CAP PO SCH (08:55)
[2021-07-03] MEDS: PRENATAL VITAMINS W/ FOLIC ACID TABLET (FP) PO SCH (10:40)
[2021-07-03] MEDS: NICOTINE 7 MG/24 HOURS TOPICAL PATCH TD SCH (10:40)
[2021-07-03] MEDS: LISINOPRIL 10 MG TABLET PO SCH ×2 (10:40→21:23)
[2021-07-03] MEDS: amLODIPine BESYLATE 10 MG TABLET (FP) PO SCH (10:40)
[2021-07-03 15:54] LABS: EPI CELLS 3 /uL (0-25.1); HYALINE CASTS 0 /uL (0-3.1); PH,URINE 6.5 (5.0-8.0); URINE APPEARANCE CLEAR; URINE BACTERIA 9 /uL (0-1359); URINE BILIRUBIN NEGATIVE (NEGATIVE); URINE COLOR YELLOW; URINE GLUCOSE (UA) NEGATIVE (NEGATIVE); URINE KETONE NEGATIVE (NEGATIVE); URINE LEUK ESTERASE NEGATIVE (NEGATIVE); URINE NITRITE NEGATIVE (NEGATIVE); URINE PROTEIN 3+ (NEGATIVE); URINE RBC 2 /uL (0-23.9); URINE UROBILINOGEN 0.2 mg/dL (0.2-1.0); URINE WBC 4 /uL (0-25.8)
[2021-07-03] MEDS: ATORVASTATIN CA 40 MG TABLET (FP) PO SCH (21:23)
[2021-07-03] MEDS: THIAMINE HCL 100 MG TABLET (FP) PO SCH (21:23)
[2021-07-03] MEDS: MELATONIN 5 MG TABLETS PO SCH (21:23)
[2021-07-04] MEDS: sitaGLIPtin PHOSPHATE 50 MG TABLET PO SCH (07:20)
[2021-07-04] MEDS ORDERED: INSULIN (NOVOLOG) ASPART 100 UNITS/ML 10ML VIAL ONE ×3 (07:34→16:46)
[2021-07-04] MEDS: INSULIN SLIDING SCALE (NOVOLOG) 1 VIAL SQ SCH ×4 (08:28→23:17)
[2021-07-04] MEDS: TAMSULOSIN HCL 0.4 MG CAP PO SCH (10:19)
[2021-07-04] MEDS: amLODIPine BESYLATE 10 MG TABLET (FP) PO SCH (10:20)
[2021-07-04] MEDS: LISINOPRIL 10 MG TABLET PO SCH ×2 (10:20→21:22)
[2021-07-04] MEDS: PRENATAL VITAMINS W/ FOLIC ACID TABLET (FP) PO SCH (10:20)
[2021-07-04] MEDS: NICOTINE 7 MG/24 HOURS TOPICAL PATCH TD SCH (10:21)
[2021-07-04] MEDS: THIAMINE HCL 100 MG TABLET (FP) PO SCH (21:23)
[2021-07-04] MEDS: ATORVASTATIN CA 40 MG TABLET (FP) PO SCH (21:23)
[2021-07-04] MEDS: MELATONIN 5 MG TABLETS PO SCH (21:23)
[2021-07-05] MEDS: sitaGLIPtin PHOSPHATE 50 MG TABLET PO SCH (07:26)
[2021-07-05] MEDS ORDERED: INSULIN (NOVOLOG) ASPART 100 UNITS/ML 10ML VIAL ONE ×3 (07:27→21:28)
[2021-07-05] MEDS: INSULIN SLIDING SCALE (NOVOLOG) 1 VIAL SQ SCH ×4 (07:27→21:28)
[2021-07-05] MEDS: TAMSULOSIN HCL 0.4 MG CAP PO SCH (09:27)
[2021-07-05] MEDS: amLODIPine BESYLATE 10 MG TABLET (FP) PO SCH (09:27)
[2021-07-05] MEDS: NICOTINE 7 MG/24 HOURS TOPICAL PATCH TD SCH (09:27)
[2021-07-05] MEDS: LISINOPRIL 10 MG TABLET PO SCH ×2 (09:27→21:25)
[2021-07-05] MEDS: PRENATAL VITAMINS W/ FOLIC ACID TABLET (FP) PO SCH (09:27)
[2021-07-05] MEDS: THIAMINE HCL 100 MG TABLET (FP) PO SCH (21:25)
[2021-07-05] MEDS: ATORVASTATIN CA 40 MG TABLET (FP) PO SCH (21:25)
[2021-07-05] MEDS: MELATONIN 5 MG TABLETS PO SCH (21:25)
[2021-07-06] MEDS: INSULIN SLIDING SCALE (NOVOLOG) 1 VIAL SQ SCH ×5 (06:30→21:51)
[2021-07-06] MEDS: sitaGLIPtin PHOSPHATE 50 MG TABLET PO SCH (06:32)
[2021-07-06] MEDS ORDERED: INSULIN (NOVOLOG) ASPART 100 UNITS/ML 10ML VIAL ONE ×3 (06:51→16:43)
[2021-07-06] MEDS: TAMSULOSIN HCL 0.4 MG CAP PO SCH (09:45)
[2021-07-06] MEDS: LISINOPRIL 10 MG TABLET PO SCH ×2 (09:45→21:50)
[2021-07-06] MEDS: PRENATAL VITAMINS W/ FOLIC ACID TABLET (FP) PO SCH (09:45)
[2021-07-06] MEDS: amLODIPine BESYLATE 10 MG TABLET (FP) PO SCH (09:45)
[2021-07-06] MEDS: NICOTINE 7 MG/24 HOURS TOPICAL PATCH TD SCH (09:46)
[2021-07-06] MEDS: ATORVASTATIN CA 40 MG TABLET (FP) PO SCH (21:50)
[2021-07-06] MEDS: MELATONIN 5 MG TABLETS PO SCH (21:50)
[2021-07-06] MEDS: THIAMINE HCL 100 MG TABLET (FP) PO SCH (21:50)
[2021-07-07] MEDS: INSULIN SLIDING SCALE (NOVOLOG) 1 VIAL SQ SCH ×4 (08:01→21:18)
[2021-07-07] MEDS: sitaGLIPtin PHOSPHATE 50 MG TABLET PO SCH (08:01)
[2021-07-07] MEDS: NICOTINE 7 MG/24 HOURS TOPICAL PATCH TD SCH (09:41)
[2021-07-07] MEDS: amLODIPine BESYLATE 10 MG TABLET (FP) PO SCH (09:42)
[2021-07-07] MEDS: LISINOPRIL 10 MG TABLET PO SCH ×2 (09:42→21:15)
[2021-07-07] MEDS: TAMSULOSIN HCL 0.4 MG CAP PO SCH (09:42)
[2021-07-07] MEDS: PRENATAL VITAMINS W/ FOLIC ACID TABLET (FP) PO SCH (09:43)
[2021-07-07] MEDS ORDERED: INSULIN (NOVOLOG) ASPART 100 UNITS/ML 10ML VIAL ONE ×3 (11:50→22:32)
[2021-07-07] MEDS: THIAMINE HCL 100 MG TABLET (FP) PO SCH (21:15)
[2021-07-07] MEDS: MELATONIN 5 MG TABLETS PO SCH (21:15)
[2021-07-07] MEDS: ATORVASTATIN CA 40 MG TABLET (FP) PO SCH (21:15)
[2021-07-08] MEDS: IBUPROFEN 400 MG TABLET (FP) PO PRN (00:46)
[2021-07-08] MEDS: sitaGLIPtin PHOSPHATE 50 MG TABLET PO SCH (06:42)
[2021-07-08] MEDS: INSULIN SLIDING SCALE (NOVOLOG) 1 VIAL SQ SCH ×4 (08:37→21:00)
[2021-07-08] MEDS ORDERED: INSULIN (NOVOLOG) ASPART 100 UNITS/ML 10ML VIAL ONE ×4 (08:40→20:59)
[2021-07-08] MEDS: amLODIPine BESYLATE 10 MG TABLET (FP) PO SCH (09:31)
[2021-07-08] MEDS: PRENATAL VITAMINS W/ FOLIC ACID TABLET (FP) PO SCH (09:31)
[2021-07-08] MEDS: LISINOPRIL 10 MG TABLET PO SCH ×2 (09:31→21:00)
[2021-07-08] MEDS: TAMSULOSIN HCL 0.4 MG CAP PO SCH (09:31)
[2021-07-08] MEDS: NICOTINE 7 MG/24 HOURS TOPICAL PATCH TD SCH (09:32)
[2021-07-08] MEDS ORDERED: PT OWN MED DRAWER 7, Y5N ONE (11:58)
[2021-07-08] MEDS: ATORVASTATIN CA 40 MG TABLET (FP) PO SCH (21:00)
[2021-07-08] MEDS: THIAMINE HCL 100 MG TABLET (FP) PO SCH (21:00)
[2021-07-08] MEDS: MELATONIN 5 MG TABLETS PO SCH (21:00)
[2021-07-09] MEDS: IBUPROFEN 400 MG TABLET (FP) PO PRN ×2 (00:31→22:39)
[2021-07-09] MEDS: INSULIN SLIDING SCALE (NOVOLOG) 1 VIAL SQ SCH ×4 (08:28→22:01)
[2021-07-09] MEDS: sitaGLIPtin PHOSPHATE 50 MG TABLET PO SCH (08:28)
[2021-07-09] MEDS: TAMSULOSIN HCL 0.4 MG CAP PO SCH (09:32)
[2021-07-09] MEDS: amLODIPine BESYLATE 10 MG TABLET (FP) PO SCH (09:32)
[2021-07-09] MEDS: PRENATAL VITAMINS W/ FOLIC ACID TABLET (FP) PO SCH (09:32)
[2021-07-09] MEDS: LISINOPRIL 10 MG TABLET PO SCH ×2 (09:32→21:59)
[2021-07-09] MEDS: NICOTINE 7 MG/24 HOURS TOPICAL PATCH TD SCH (09:32)
[2021-07-09] MEDS ORDERED: INSULIN (NOVOLOG) ASPART 100 UNITS/ML 10ML VIAL ONE ×2 (11:51→16:40)
[2021-07-09] MEDS: THIAMINE HCL 100 MG TABLET (FP) PO SCH (21:59)
[2021-07-09] MEDS: ATORVASTATIN CA 40 MG TABLET (FP) PO SCH (21:59)
[2021-07-09] MEDS: MELATONIN 5 MG TABLETS PO SCH (21:59)
[2021-07-10] MEDS: sitaGLIPtin PHOSPHATE 50 MG TABLET PO SCH (06:16)
[2021-07-10] MEDS: INSULIN SLIDING SCALE (NOVOLOG) 1 VIAL SQ SCH ×4 (06:17→21:36)
[2021-07-10] MEDS ORDERED: INSULIN (NOVOLOG) ASPART 100 UNITS/ML 10ML VIAL ONE ×4 (06:58→22:01)
[2021-07-10] MEDS: TAMSULOSIN HCL 0.4 MG CAP PO SCH (07:31)
[2021-07-10] MEDS: amLODIPine BESYLATE 10 MG TABLET (FP) PO SCH (09:42)
[2021-07-10] MEDS: LISINOPRIL 10 MG TABLET PO SCH ×2 (09:42→21:32)
[2021-07-10] MEDS: NICOTINE 7 MG/24 HOURS TOPICAL PATCH TD SCH (09:43)
[2021-07-10] MEDS: PRENATAL VITAMINS W/ FOLIC ACID TABLET (FP) PO SCH (09:43)
[2021-07-10] MEDS: METHYL SALICYLATE/MENTHOL OINT 30 GM TUBE TP SCH ×2 (11:00→21:33)
[2021-07-10] MEDS: ATORVASTATIN CA 40 MG TABLET (FP) PO SCH (21:32)
[2021-07-10] MEDS: MELATONIN 5 MG TABLETS PO SCH (21:33)
[2021-07-10] MEDS: THIAMINE HCL 100 MG TABLET (FP) PO SCH (21:33)
[2021-07-11] MEDS: IBUPROFEN 400 MG TABLET (FP) PO PRN ×2 (03:33→23:38)
[2021-07-11] MEDS: sitaGLIPtin PHOSPHATE 50 MG TABLET PO SCH (06:58)
[2021-07-11] MEDS: INSULIN SLIDING SCALE (NOVOLOG) 1 VIAL SQ SCH ×4 (06:58→21:01)
[2021-07-11] MEDS: TAMSULOSIN HCL 0.4 MG CAP PO SCH (11:20)
[2021-07-11] MEDS: METHYL SALICYLATE/MENTHOL OINT 30 GM TUBE TP SCH ×2 (11:20→21:02)
[2021-07-11] MEDS: LISINOPRIL 10 MG TABLET PO SCH ×2 (11:21→21:02)
[2021-07-11] MEDS: NICOTINE 7 MG/24 HOURS TOPICAL PATCH TD SCH (11:21)
[2021-07-11] MEDS: PRENATAL VITAMINS W/ FOLIC ACID TABLET (FP) PO SCH (11:21)
[2021-07-11] MEDS: amLODIPine BESYLATE 10 MG TABLET (FP) PO SCH (11:21)
[2021-07-11] MEDS ORDERED: INSULIN (NOVOLOG) ASPART 100 UNITS/ML 10ML VIAL ONE ×3 (12:02→21:00)
[2021-07-11] MEDS: MELATONIN 5 MG TABLETS PO SCH (21:02)
[2021-07-11] MEDS: ATORVASTATIN CA 40 MG TABLET (FP) PO SCH (21:02)
[2021-07-11] MEDS: THIAMINE HCL 100 MG TABLET (FP) PO SCH (21:02)
[2021-07-12] MEDS: ACETAMINOPHEN 325 MG TABLET (FP) PO PRN (03:34)
[2021-07-12] MEDS: INSULIN SLIDING SCALE (NOVOLOG) 1 VIAL SQ SCH ×4 (07:55→22:07)
[2021-07-12] MEDS: sitaGLIPtin PHOSPHATE 50 MG TABLET PO SCH (08:35)
[2021-07-12] MEDS: TAMSULOSIN HCL 0.4 MG CAP PO SCH (10:09)
[2021-07-12] MEDS: PRENATAL VITAMINS W/ FOLIC ACID TABLET (FP) PO SCH (10:09)
[2021-07-12] MEDS: LISINOPRIL 10 MG TABLET PO SCH ×2 (10:09→22:03)
[2021-07-12] MEDS: amLODIPine BESYLATE 10 MG TABLET (FP) PO SCH (10:09)
[2021-07-12] MEDS: METHYL SALICYLATE/MENTHOL OINT 30 GM TUBE TP SCH ×2 (10:10→22:05)
[2021-07-12] MEDS: NICOTINE 7 MG/24 HOURS TOPICAL PATCH TD SCH (10:10)
[2021-07-12] MEDS: IBUPROFEN 400 MG TABLET (FP) PO PRN (11:45)
[2021-07-12] MEDS ORDERED: INSULIN (NOVOLOG) ASPART 100 UNITS/ML 10ML VIAL ONE ×2 (11:48→17:18)
[2021-07-12] MEDS ORDERED: PT OWN MED DRAWER 7, Y5N ONE (19:54)
[2021-07-12] MEDS: MELATONIN 5 MG TABLETS PO SCH (22:03)
[2021-07-12] MEDS: ATORVASTATIN CA 40 MG TABLET (FP) PO SCH (22:03)
[2021-07-12] MEDS: THIAMINE HCL 100 MG TABLET (FP) PO SCH (22:03)
[2021-07-13] MEDS: IBUPROFEN 400 MG TABLET (FP) PO PRN (02:08)
[2021-07-13] MEDS: sitaGLIPtin PHOSPHATE 50 MG TABLET PO SCH (07:43)
[2021-07-13] MEDS ORDERED: INSULIN (NOVOLOG) ASPART 100 UNITS/ML 10ML VIAL ONE ×3 (07:44→17:33)
[2021-07-13] MEDS: INSULIN SLIDING SCALE (NOVOLOG) 1 VIAL SQ SCH ×4 (07:44→21:57)
[2021-07-13] MEDS: LISINOPRIL 10 MG TABLET PO SCH ×2 (10:31→21:55)
[2021-07-13] MEDS: TAMSULOSIN HCL 0.4 MG CAP PO SCH (10:32)
[2021-07-13] MEDS: amLODIPine BESYLATE 10 MG TABLET (FP) PO SCH (10:32)
[2021-07-13] MEDS: PRENATAL VITAMINS W/ FOLIC ACID TABLET (FP) PO SCH (10:33)
[2021-07-13] MEDS: NICOTINE 7 MG/24 HOURS TOPICAL PATCH TD SCH (10:33)
[2021-07-13] MEDS: METHYL SALICYLATE/MENTHOL OINT 30 GM TUBE TP SCH ×2 (10:34→21:56)
[2021-07-13] MEDS: ATORVASTATIN CA 40 MG TABLET (FP) PO SCH (21:55)
[2021-07-13] MEDS: MELATONIN 5 MG TABLETS PO SCH (21:55)
[2021-07-13] MEDS: THIAMINE HCL 100 MG TABLET (FP) PO SCH (21:55)
[2021-07-14] MEDS: ACETAMINOPHEN 325 MG TABLET (FP) PO PRN
[2021-07-14] MEDS: sitaGLIPtin PHOSPHATE 50 MG TABLET PO SCH (06:52)
[2021-07-14] MEDS: TAMSULOSIN HCL 0.4 MG CAP PO SCH (07:35)
[2021-07-14] MEDS ORDERED: INSULIN (NOVOLOG) ASPART 100 UNITS/ML 10ML VIAL ONE ×3 (07:59→21:48)
[2021-07-14] MEDS: INSULIN SLIDING SCALE (NOVOLOG) 1 VIAL SQ SCH ×4 (08:00→21:50)
[2021-07-14] MEDS: LISINOPRIL 10 MG TABLET PO SCH ×2 (09:26→21:33)
[2021-07-14] MEDS: amLODIPine BESYLATE 10 MG TABLET (FP) PO SCH (09:26)
[2021-07-14] MEDS: NICOTINE 7 MG/24 HOURS TOPICAL PATCH TD SCH (09:26)
[2021-07-14] MEDS: METHYL SALICYLATE/MENTHOL OINT 30 GM TUBE TP SCH ×2 (09:26→21:49)
[2021-07-14] MEDS: PRENATAL VITAMINS W/ FOLIC ACID TABLET (FP) PO SCH (09:26)
[2021-07-14] MEDS: ATORVASTATIN CA 40 MG TABLET (FP) PO SCH (21:46)
[2021-07-14] MEDS: MELATONIN 5 MG TABLETS PO SCH (21:46)
[2021-07-14] MEDS: THIAMINE HCL 100 MG TABLET (FP) PO SCH (21:46)
[2021-07-15] MEDS: sitaGLIPtin PHOSPHATE 50 MG TABLET PO SCH (07:18)
[2021-07-15] MEDS: INSULIN SLIDING SCALE (NOVOLOG) 1 VIAL SQ SCH ×4 (07:18→21:48)
[2021-07-15] MEDS ORDERED: PT OWN MED DRAWER 7, Y5N ONE ×3 (10:24→21:53)
[2021-07-15] MEDS: TAMSULOSIN HCL 0.4 MG CAP PO SCH (10:48)
[2021-07-15] MEDS: amLODIPine BESYLATE 10 MG TABLET (FP) PO SCH (10:48)
[2021-07-15] MEDS: PRENATAL VITAMINS W/ FOLIC ACID TABLET (FP) PO SCH (10:49)
[2021-07-15] MEDS: NICOTINE 7 MG/24 HOURS TOPICAL PATCH TD SCH (10:50)
[2021-07-15] MEDS: METHYL SALICYLATE/MENTHOL OINT 30 GM TUBE TP SCH ×2 (10:50→23:13)
[2021-07-15] MEDS: LISINOPRIL 10 MG TABLET PO SCH ×2 (10:50→21:41)
[2021-07-15] MEDS ORDERED: INSULIN (NOVOLOG) ASPART 100 UNITS/ML 10ML VIAL ONE ×2 (12:01→21:48)
[2021-07-15] MEDS: THIAMINE HCL 100 MG TABLET (FP) PO SCH (21:41)
[2021-07-15] MEDS: ATORVASTATIN CA 40 MG TABLET (FP) PO SCH (21:41)
[2021-07-15] MEDS: ACETAMINOPHEN 325 MG TABLET (FP) PO PRN (21:43)
[2021-07-15] MEDS: MELATONIN 5 MG TABLETS PO SCH (23:13)
[2021-07-16] MEDS ORDERED: INSULIN (NOVOLOG) ASPART 100 UNITS/ML 10ML VIAL ONE ×3 (06:29→21:41)
[2021-07-16] MEDS: INSULIN SLIDING SCALE (NOVOLOG) 1 VIAL SQ SCH ×4 (06:29→21:41)
[2021-07-16] MEDS: sitaGLIPtin PHOSPHATE 50 MG TABLET PO SCH (06:30)
[2021-07-16] MEDS: TAMSULOSIN HCL 0.4 MG CAP PO SCH (07:53)
[2021-07-16] MEDS ORDERED: PT OWN MED DRAWER 7, Y5N ONE ×2 (09:03→23:48)
[2021-07-16] MEDS: NICOTINE 7 MG/24 HOURS TOPICAL PATCH TD SCH (09:50)
[2021-07-16] MEDS: amLODIPine BESYLATE 10 MG TABLET (FP) PO SCH (09:50)
[2021-07-16] MEDS: METHYL SALICYLATE/MENTHOL OINT 30 GM TUBE TP SCH ×2 (09:50→21:36)
[2021-07-16] MEDS: PRENATAL VITAMINS W/ FOLIC ACID TABLET (FP) PO SCH (09:51)
[2021-07-16] MEDS: LISINOPRIL 10 MG TABLET PO SCH ×2 (09:51→21:35)
[2021-07-16] MEDS: ATORVASTATIN CA 40 MG TABLET (FP) PO SCH (21:35)
[2021-07-16] MEDS: THIAMINE HCL 100 MG TABLET (FP) PO SCH (21:35)
[2021-07-16] MEDS: MELATONIN 5 MG TABLETS PO SCH (21:36)
[2021-07-17] MEDS: sitaGLIPtin PHOSPHATE 50 MG TABLET PO SCH (06:22)
[2021-07-17] MEDS ORDERED: INSULIN (NOVOLOG) ASPART 100 UNITS/ML 10ML VIAL ONE ×3 (07:43→19:30)
[2021-07-17] MEDS: INSULIN SLIDING SCALE (NOVOLOG) 1 VIAL SQ SCH ×4 (08:30→21:31)
[2021-07-17] MEDS: amLODIPine BESYLATE 10 MG TABLET (FP) PO SCH (10:05)
[2021-07-17] MEDS: PRENATAL VITAMINS W/ FOLIC ACID TABLET (FP) PO SCH (10:05)
[2021-07-17] MEDS: TAMSULOSIN HCL 0.4 MG CAP PO SCH (10:05)
[2021-07-17] MEDS: LISINOPRIL 10 MG TABLET PO SCH ×2 (10:05→21:31)
[2021-07-17] MEDS: METHYL SALICYLATE/MENTHOL OINT 30 GM TUBE TP SCH ×2 (10:06→21:34)
[2021-07-17] MEDS: NICOTINE 7 MG/24 HOURS TOPICAL PATCH TD SCH (10:06)
[2021-07-17] MEDS: MELATONIN 5 MG TABLETS PO SCH (21:31)
[2021-07-17] MEDS: THIAMINE HCL 100 MG TABLET (FP) PO SCH (21:31)
[2021-07-17] MEDS: ATORVASTATIN CA 40 MG TABLET (FP) PO SCH (21:31)
[2021-07-17] MEDS: ACETAMINOPHEN 325 MG TABLET (FP) PO PRN (21:32)
[2021-07-18] MEDS: IBUPROFEN 400 MG TABLET (FP) PO PRN (02:43)
[2021-07-18] MEDS: sitaGLIPtin PHOSPHATE 50 MG TABLET PO SCH (07:56)
[2021-07-18] MEDS: INSULIN SLIDING SCALE (NOVOLOG) 1 VIAL SQ SCH ×4 (07:56→21:52)
[2021-07-18] MEDS: METHYL SALICYLATE/MENTHOL OINT 30 GM TUBE TP SCH ×2 (10:54→22:16)
[2021-07-18] MEDS: TAMSULOSIN HCL 0.4 MG CAP PO SCH (10:54)
[2021-07-18] MEDS: PRENATAL VITAMINS W/ FOLIC ACID TABLET (FP) PO SCH (10:54)
[2021-07-18] MEDS: amLODIPine BESYLATE 10 MG TABLET (FP) PO SCH (10:54)
[2021-07-18] MEDS: LISINOPRIL 10 MG TABLET PO SCH ×2 (10:54→21:52)
[2021-07-18] MEDS: NICOTINE 7 MG/24 HOURS TOPICAL PATCH TD SCH (10:54)
[2021-07-18] MEDS ORDERED: INSULIN (NOVOLOG) ASPART 100 UNITS/ML 10ML VIAL ONE ×3 (11:48→22:01)
[2021-07-18] MEDS ORDERED: COLLOIDAL OATMEAL 1 BAR EACH TP PRN (12:51)
[2021-07-18] MEDS: ACETAMINOPHEN 325 MG TABLET (FP) PO PRN ×2 (18:49→21:53)
[2021-07-18] MEDS ORDERED: PT OWN MED DRAWER 7, Y5N ONE (19:36)
[2021-07-18] MEDS: ATORVASTATIN CA 40 MG TABLET (FP) PO SCH (21:52)
[2021-07-18] MEDS: THIAMINE HCL 100 MG TABLET (FP) PO SCH (21:52)
[2021-07-18] MEDS: MELATONIN 5 MG TABLETS PO SCH (21:53)
[2021-07-19] MEDS: INSULIN SLIDING SCALE (NOVOLOG) 1 VIAL SQ SCH ×4 (07:59→21:46)
[2021-07-19] MEDS: sitaGLIPtin PHOSPHATE 50 MG TABLET PO SCH (07:59)
[2021-07-19] MEDS ORDERED: INSULIN (NOVOLOG) ASPART 100 UNITS/ML 10ML VIAL ONE ×4 (08:32→21:45)
[2021-07-19] MEDS: TAMSULOSIN HCL 0.4 MG CAP PO SCH (09:32)
[2021-07-19] MEDS: NICOTINE 7 MG/24 HOURS TOPICAL PATCH TD SCH (09:32)
[2021-07-19] MEDS: METHYL SALICYLATE/MENTHOL OINT 30 GM TUBE TP SCH ×2 (09:32→21:49)
[2021-07-19] MEDS: amLODIPine BESYLATE 10 MG TABLET (FP) PO SCH (09:33)
[2021-07-19] MEDS: PRENATAL VITAMINS W/ FOLIC ACID TABLET (FP) PO SCH (09:33)
[2021-07-19] MEDS: LISINOPRIL 10 MG TABLET PO SCH ×2 (09:33→21:47)
[2021-07-19] MEDS: ATORVASTATIN CA 40 MG TABLET (FP) PO SCH (21:47)
[2021-07-19] MEDS: MELATONIN 5 MG TABLETS PO SCH (21:47)
[2021-07-19] MEDS ORDERED: PT OWN MED DRAWER 7, Y5N ONE (21:47)
[2021-07-19] MEDS: THIAMINE HCL 100 MG TABLET (FP) PO SCH (21:47)
[2021-07-20] MEDS: ACETAMINOPHEN 325 MG TABLET (FP) PO PRN ×2 (02:18→15:27)
[2021-07-20] MEDS ORDERED: INSULIN (NOVOLOG) ASPART 100 UNITS/ML 10ML VIAL ONE ×4 (06:14→21:50)
[2021-07-20] MEDS: INSULIN SLIDING SCALE (NOVOLOG) 1 VIAL SQ SCH ×4 (06:14→21:52)
[2021-07-20] MEDS: sitaGLIPtin PHOSPHATE 50 MG TABLET PO SCH (06:15)
[2021-07-20] MEDS: TAMSULOSIN HCL 0.4 MG CAP PO SCH (07:36)
[2021-07-20] MEDS: LISINOPRIL 10 MG TABLET PO SCH ×2 (10:01→21:51)
[2021-07-20] MEDS: METHYL SALICYLATE/MENTHOL OINT 30 GM TUBE TP SCH ×2 (10:01→21:52)
[2021-07-20] MEDS: NICOTINE 7 MG/24 HOURS TOPICAL PATCH TD SCH (10:01)
[2021-07-20] MEDS: PRENATAL VITAMINS W/ FOLIC ACID TABLET (FP) PO SCH (10:02)
[2021-07-20] MEDS: amLODIPine BESYLATE 10 MG TABLET (FP) PO SCH (10:02)
[2021-07-20] MEDS: THIAMINE HCL 100 MG TABLET (FP) PO SCH (21:51)
[2021-07-20] MEDS: ATORVASTATIN CA 40 MG TABLET (FP) PO SCH (21:52)
[2021-07-20] MEDS: MELATONIN 5 MG TABLETS PO SCH (21:52)
[2021-07-20] MEDS ORDERED: PT OWN MED DRAWER 7, Y5N ONE (23:45)
[2021-07-21] MEDS: IBUPROFEN 400 MG TABLET (FP) PO PRN (03:17)
[2021-07-21] MEDS ORDERED: PT OWN MED DRAWER 7, Y5N ONE (04:00)
[2021-07-21] MEDS: sitaGLIPtin PHOSPHATE 50 MG TABLET PO SCH (06:28)
[2021-07-21] MEDS ORDERED: INSULIN (NOVOLOG) ASPART 100 UNITS/ML 10ML VIAL ONE ×3 (06:30→17:41)
[2021-07-21] MEDS: INSULIN SLIDING SCALE (NOVOLOG) 1 VIAL SQ SCH ×4 (06:31→21:45)
[2021-07-21] MEDS: NICOTINE 7 MG/24 HOURS TOPICAL PATCH TD SCH (09:56)
[2021-07-21] MEDS: TAMSULOSIN HCL 0.4 MG CAP PO SCH (09:56)
[2021-07-21] MEDS: METHYL SALICYLATE/MENTHOL OINT 30 GM TUBE TP SCH ×2 (09:56→21:07)
[2021-07-21] MEDS: PRENATAL VITAMINS W/ FOLIC ACID TABLET (FP) PO SCH (09:57)
[2021-07-21] MEDS: LISINOPRIL 10 MG TABLET PO SCH ×2 (09:57→21:06)
[2021-07-21] MEDS: amLODIPine BESYLATE 10 MG TABLET (FP) PO SCH (09:57)
[2021-07-21] MEDS: MELATONIN 5 MG TABLETS PO SCH (21:06)
[2021-07-21] MEDS: THIAMINE HCL 100 MG TABLET (FP) PO SCH (21:06)
[2021-07-21] MEDS: ATORVASTATIN CA 40 MG TABLET (FP) PO SCH (21:06)
[2021-07-21] MEDS: ACETAMINOPHEN 325 MG TABLET (FP) PO PRN (21:07)
[2021-07-22] MEDS ORDERED: INSULIN (NOVOLOG) ASPART 100 UNITS/ML 10ML VIAL ONE ×4 (00:22→11:49)
[2021-07-22] MEDS ORDERED: ACETAMINOPHEN 325 MG TABLET (FP) ONE (00:22)
[2021-07-22] MEDS: INSULIN SLIDING SCALE (NOVOLOG) 1 VIAL SQ SCH ×4 (06:20→21:44)
[2021-07-22] MEDS: sitaGLIPtin PHOSPHATE 50 MG TABLET PO SCH (06:21)
[2021-07-22] MEDS ORDERED: PT OWN MED DRAWER 7, Y5N ONE (08:50)
[2021-07-22] MEDS: LISINOPRIL 10 MG TABLET PO SCH ×2 (09:57→21:42)
[2021-07-22] MEDS: PRENATAL VITAMINS W/ FOLIC ACID TABLET (FP) PO SCH (09:57)
[2021-07-22] MEDS: amLODIPine BESYLATE 10 MG TABLET (FP) PO SCH (09:57)
[2021-07-22] MEDS: TAMSULOSIN HCL 0.4 MG CAP PO SCH (09:58)
[2021-07-22] MEDS: NICOTINE 7 MG/24 HOURS TOPICAL PATCH TD SCH (09:58)
[2021-07-22] MEDS: METHYL SALICYLATE/MENTHOL OINT 30 GM TUBE TP SCH ×2 (09:58→21:42)
[2021-07-22] MEDS: MELATONIN 5 MG TABLETS PO SCH (21:42)
[2021-07-22] MEDS: ATORVASTATIN CA 40 MG TABLET (FP) PO SCH (21:42)
[2021-07-22] MEDS: ACETAMINOPHEN 325 MG TABLET (FP) PO PRN (21:42)
[2021-07-22] MEDS: THIAMINE HCL 100 MG TABLET (FP) PO SCH (21:42)
[2021-07-23] MEDS: sitaGLIPtin PHOSPHATE 50 MG TABLET PO SCH (06:34)
[2021-07-23] MEDS: INSULIN SLIDING SCALE (NOVOLOG) 1 VIAL SQ SCH ×4 (08:37→21:56)
[2021-07-23] MEDS ORDERED: INSULIN (NOVOLOG) ASPART 100 UNITS/ML 10ML VIAL ONE ×4 (08:42→21:56)
[2021-07-23] MEDS: TAMSULOSIN HCL 0.4 MG CAP PO SCH (09:54)
[2021-07-23] MEDS: LISINOPRIL 10 MG TABLET PO SCH ×2 (09:54→21:50)
[2021-07-23] MEDS: METHYL SALICYLATE/MENTHOL OINT 30 GM TUBE TP SCH ×2 (09:55→22:05)
[2021-07-23] MEDS: PRENATAL VITAMINS W/ FOLIC ACID TABLET (FP) PO SCH (09:55)
[2021-07-23] MEDS: NICOTINE 7 MG/24 HOURS TOPICAL PATCH TD SCH (09:55)
[2021-07-23] MEDS: amLODIPine BESYLATE 10 MG TABLET (FP) PO SCH (09:55)
[2021-07-23] MEDS: THIAMINE HCL 100 MG TABLET (FP) PO SCH (21:50)
[2021-07-23] MEDS: ATORVASTATIN CA 40 MG TABLET (FP) PO SCH (21:50)
[2021-07-23] MEDS: MELATONIN 5 MG TABLETS PO SCH (21:50)
[2021-07-23] MEDS ORDERED: PT OWN MED DRAWER 7, Y5N ONE (22:27)
[2021-07-24] MEDS: ACETAMINOPHEN 325 MG TABLET (FP) PO PRN ×2 (00:10→15:11)
[2021-07-24] MEDS ORDERED: INSULIN (NOVOLOG) ASPART 100 UNITS/ML 10ML VIAL ONE ×5 (06:13→21:55)
[2021-07-24] MEDS: sitaGLIPtin PHOSPHATE 50 MG TABLET PO SCH (07:10)
[2021-07-24] MEDS: INSULIN SLIDING SCALE (NOVOLOG) 1 VIAL SQ SCH ×4 (07:11→21:58)
[2021-07-24] MEDS: TAMSULOSIN HCL 0.4 MG CAP PO SCH (09:46)
[2021-07-24] MEDS: METHYL SALICYLATE/MENTHOL OINT 30 GM TUBE TP SCH (09:47)
[2021-07-24] MEDS: PRENATAL VITAMINS W/ FOLIC ACID TABLET (FP) PO SCH (09:47)
[2021-07-24] MEDS: amLODIPine BESYLATE 10 MG TABLET (FP) PO SCH (09:47)
[2021-07-24] MEDS: NICOTINE 7 MG/24 HOURS TOPICAL PATCH TD SCH (09:47)
[2021-07-24] MEDS: LISINOPRIL 10 MG TABLET PO SCH ×2 (09:47→21:50)
[2021-07-24] MEDS: ATORVASTATIN CA 40 MG TABLET (FP) PO SCH (21:50)
[2021-07-24] MEDS: THIAMINE HCL 100 MG TABLET (FP) PO SCH (21:50)
[2021-07-24] MEDS: MELATONIN 5 MG TABLETS PO SCH (21:51)
[2021-07-24] MEDS ORDERED: PT OWN MED DRAWER 7, Y5N ONE (21:57)
[2021-07-25] MEDS: METHYL SALICYLATE/MENTHOL OINT 30 GM TUBE TP SCH ×3 (00:02→21:51)
[2021-07-25] MEDS: ACETAMINOPHEN 325 MG TABLET (FP) PO PRN ×2 (02:51→21:44)
[2021-07-25] MEDS: sitaGLIPtin PHOSPHATE 50 MG TABLET PO SCH (06:17)
[2021-07-25] MEDS ORDERED: INSULIN (NOVOLOG) ASPART 100 UNITS/ML 10ML VIAL ONE ×4 (07:00→21:48)
[2021-07-25] MEDS: INSULIN SLIDING SCALE (NOVOLOG) 1 VIAL SQ SCH ×4 (07:00→21:49)
[2021-07-25] MEDS: TAMSULOSIN HCL 0.4 MG CAP PO SCH (07:32)
[2021-07-25] MEDS: amLODIPine BESYLATE 10 MG TABLET (FP) PO SCH (09:10)
[2021-07-25] MEDS: PRENATAL VITAMINS W/ FOLIC ACID TABLET (FP) PO SCH (09:10)
[2021-07-25] MEDS: NICOTINE 7 MG/24 HOURS TOPICAL PATCH TD SCH (09:10)
[2021-07-25] MEDS: LISINOPRIL 10 MG TABLET PO SCH ×2 (09:10→21:43)
[2021-07-25] MEDS: THIAMINE HCL 100 MG TABLET (FP) PO SCH (21:43)
[2021-07-25] MEDS: MELATONIN 5 MG TABLETS PO SCH (21:43)
[2021-07-25] MEDS: ATORVASTATIN CA 40 MG TABLET (FP) PO SCH (21:43)
[2021-07-26] MEDS: ACETAMINOPHEN 325 MG TABLET (FP) PO PRN ×3 (03:24→21:39)
[2021-07-26] MEDS: sitaGLIPtin PHOSPHATE 50 MG TABLET PO SCH (06:20)
[2021-07-26] MEDS: INSULIN SLIDING SCALE (NOVOLOG) 1 VIAL SQ SCH ×4 (06:40→21:43)
[2021-07-26] MEDS ORDERED: INSULIN (NOVOLOG) ASPART 100 UNITS/ML 10ML VIAL ONE ×3 (06:41→16:41)
[2021-07-26] MEDS ORDERED: PT OWN MED DRAWER 7, Y5N ONE (07:32)
[2021-07-26] MEDS: PRENATAL VITAMINS W/ FOLIC ACID TABLET (FP) PO SCH (09:10)
[2021-07-26] MEDS: TAMSULOSIN HCL 0.4 MG CAP PO SCH (09:11)
[2021-07-26] MEDS: LISINOPRIL 10 MG TABLET PO SCH ×2 (09:11→21:42)
[2021-07-26] MEDS: amLODIPine BESYLATE 10 MG TABLET (FP) PO SCH (09:11)
[2021-07-26] MEDS: METHYL SALICYLATE/MENTHOL OINT 30 GM TUBE TP SCH ×2 (09:12→21:48)
[2021-07-26] MEDS: NICOTINE 7 MG/24 HOURS TOPICAL PATCH TD SCH (09:12)
[2021-07-26] MEDS: MELATONIN 5 MG TABLETS PO SCH (21:42)
[2021-07-26] MEDS: THIAMINE HCL 100 MG TABLET (FP) PO SCH (21:49)
[2021-07-26] MEDS: ATORVASTATIN CA 40 MG TABLET (FP) PO SCH (21:49)
[2021-07-27] MEDS: IBUPROFEN 400 MG TABLET (FP) PO PRN (02:34)
[2021-07-27] MEDS: sitaGLIPtin PHOSPHATE 50 MG TABLET PO SCH (06:46)
[2021-07-27] MEDS: INSULIN SLIDING SCALE (NOVOLOG) 1 VIAL SQ SCH ×4 (06:46→21:42)
[2021-07-27] MEDS ORDERED: INSULIN (NOVOLOG) ASPART 100 UNITS/ML 10ML VIAL ONE ×4 (06:50→21:43)
[2021-07-27] MEDS: TAMSULOSIN HCL 0.4 MG CAP PO SCH (10:21)
[2021-07-27] MEDS: NICOTINE 7 MG/24 HOURS TOPICAL PATCH TD SCH (10:22)
[2021-07-27] MEDS: METHYL SALICYLATE/MENTHOL OINT 30 GM TUBE TP SCH ×2 (10:22→21:37)
[2021-07-27] MEDS: amLODIPine BESYLATE 10 MG TABLET (FP) PO SCH (10:22)
[2021-07-27] MEDS: PRENATAL VITAMINS W/ FOLIC ACID TABLET (FP) PO SCH (10:22)
[2021-07-27] MEDS: LISINOPRIL 10 MG TABLET PO SCH ×2 (10:22→21:37)
[2021-07-27] MEDS ORDERED: PT OWN MED DRAWER 7, Y5N ONE ×2 (10:37→21:49)
[2021-07-27] MEDS: ACETAMINOPHEN 325 MG TABLET (FP) PO PRN ×2 (15:12→21:38)
[2021-07-27] MEDS: ATORVASTATIN CA 40 MG TABLET (FP) PO SCH (21:37)
[2021-07-27] MEDS: THIAMINE HCL 100 MG TABLET (FP) PO SCH (21:37)
[2021-07-27] MEDS: MELATONIN 5 MG TABLETS PO SCH (21:37)
[2021-07-28] MEDS: sitaGLIPtin PHOSPHATE 50 MG TABLET PO SCH (06:19)
[2021-07-28] MEDS: INSULIN SLIDING SCALE (NOVOLOG) 1 VIAL SQ SCH ×4 (06:36→21:40)
[2021-07-28] MEDS ORDERED: INSULIN (NOVOLOG) ASPART 100 UNITS/ML 10ML VIAL ONE ×3 (06:36→21:40)
[2021-07-28] MEDS: TAMSULOSIN HCL 0.4 MG CAP PO SCH (10:16)
[2021-07-28] MEDS: LISINOPRIL 10 MG TABLET PO SCH ×2 (10:16→21:35)
[2021-07-28] MEDS: PRENATAL VITAMINS W/ FOLIC ACID TABLET (FP) PO SCH (10:16)
[2021-07-28] MEDS: amLODIPine BESYLATE 10 MG TABLET (FP) PO SCH (10:16)
[2021-07-28] MEDS: NICOTINE 7 MG/24 HOURS TOPICAL PATCH TD SCH (10:34)
[2021-07-28] MEDS: METHYL SALICYLATE/MENTHOL OINT 30 GM TUBE TP SCH ×2 (10:34→21:36)
[2021-07-28] MEDS: BACITRACIN 0.9 GM PACKET TP SCH ×2 (10:34→21:35)
[2021-07-28] MEDS ORDERED: PT OWN MED DRAWER 7, Y5N ONE ×2 (12:11→20:50)
[2021-07-28] MEDS: ATORVASTATIN CA 40 MG TABLET (FP) PO SCH (21:35)
[2021-07-28] MEDS: THIAMINE HCL 100 MG TABLET (FP) PO SCH (21:35)
[2021-07-28] MEDS: MELATONIN 5 MG TABLETS PO SCH (21:35)
[2021-07-29] MEDS: sitaGLIPtin PHOSPHATE 50 MG TABLET PO SCH (06:58)
[2021-07-29] MEDS: INSULIN SLIDING SCALE (NOVOLOG) 1 VIAL SQ SCH (07:00)
[2021-07-29] MEDS ORDERED: INSULIN (NOVOLOG) ASPART 100 UNITS/ML 10ML VIAL ONE (07:01)
[2021-07-29] MEDS: amLODIPine BESYLATE 10 MG TABLET (FP) PO SCH (09:16)
[2021-07-29] MEDS: TAMSULOSIN HCL 0.4 MG CAP PO SCH (09:16)
[2021-07-29] MEDS: NICOTINE 7 MG/24 HOURS TOPICAL PATCH TD SCH (09:17)
[2021-07-29] MEDS: LISINOPRIL 10 MG TABLET PO SCH (09:17)
[2021-07-29] MEDS: PRENATAL VITAMINS W/ FOLIC ACID TABLET (FP) PO SCH (09:17)
[2021-07-29] MEDS: BACITRACIN 0.9 GM PACKET TP SCH (09:17)
[2021-07-29] MEDS: METHYL SALICYLATE/MENTHOL OINT 30 GM TUBE TP SCH (09:17)
[2021-07-29 09:24] VITALS: BP 184/80; PULSE 100; TEMP 97.3
[2021-07-29] MEDS: ACETAMINOPHEN 325 MG TABLET (FP) PO PRN (10:43)
== END 2021-07-29 11:20 | disposition home or self-care (01) | DRG 895 ==
LOC: YASAS 12:20 → Y3W 14:46 → Y3E 14:54
PROVIDERS: ADMIT Allergy & Immunology; ATTEND Allergy & Immunology
PROC: HZ42ZZZ Group Counseling for Substance Abuse Treatment, Cognitive-Behavioral (ICD-10-PCS; principal; 2021-06-30)
DX: F10.20 Alcohol dependence, uncomplicated (principal); F14.20 Cocaine dependence, uncomplicated; F17.210 Nicotine dependence, cigarettes, uncomplicated; E11.9 Type 2 diabetes mellitus without complications; I10 Essential (primary) hypertension; I25.10 Atherosclerotic heart disease of native coronary artery without angina pectoris; E78.5 Hyperlipidemia, unspecified; K21.9 Gastro-esophageal reflux disease without esophagitis; M79.622 Pain in left upper arm; G89.29 Other chronic pain; G47.00 Insomnia, unspecified; N40.0 Benign prostatic hyperplasia without lower urinary tract symptoms; L60.0 Ingrowing nail; S60.312A Abrasion of left thumb, initial encounter; X58.XXXA Exposure to other specified factors, initial encounter; Y93.9 Activity, unspecified; Y92.239 Unspecified place in hospital as the place of occurrence of the external cause; Z95.5 Presence of coronary angioplasty implant and graft; R26.2 Difficulty in walking, not elsewhere classified; Z99.89 Dependence on other enabling machines and devices; Z86.11 Personal history of tuberculosis; Z79.4 Long term (current) use of insulin
CPT/HCPCS: 36415; 80053; 81003; 82962; 85027; 86593; 86780; 86803; 87522; C9803; U0003; U0005